=== PATIENT | female | born 1960 | race African-American/Black ===

== ENCOUNTER 2016-06-13 05:55 | Day surgery (SDC) | payer BC ==
[2016-06-12 14:19] LABS: BASOPHILS 0.2 % (0.0-2.0); EOSINOPHILS 2.7 % (0-7); HEMATOCRIT 47.6 % (36.0-48.0); HEMOGLOBIN 14.9 g/dL (12-16); IMMATURE GRANULOCYTES 0.3 % (0-5); LYMPHOCYTES 27.9 % (15-50); MCH 26.6 pg (26.0-34.0); MCHC 31.3 g/dL (31.0-37.0); MCV 84.8 fL (80.0-100.0); MEAN PLATELET VOLUME 11.4 fL (7.4-10.4); MONOCYTES 7.3 % (2-11); NEUTROPHILS 61.6 % (40-80); PLATELET COUNT 231 10x3/uL (130-400); RBC 5.61 10x6/uL (4.00-5.40); RDW 14.9 % (11.5-14.5); WBC 9.9 10x3/uL (4.8-10.8)
[2016-06-12 15:11] LABS: CALC OSMOLALITY 281 mosm/kg (275-300); CALCIUM 9.2 mg/dL (8.5-10.1); CARBON DIOXIDE 29.6 mmol/L (21.0-32.0); CHLORIDE - SERUM 105 mmol/L (98-107); CREATININE - SERUM 0.7 mg/dL (0.6-1.3); POTASSIUM - SERUM 3.9 mmol/L (3.5-5.1); SODIUM 142 mmol/L (136-145); UREA NITROGEN 12 mg/dL (7-18); eGFR NON AFRICAN AMERICAN > 90 mL/min (90-120)
[2016-06-12 15:19] LABS: GLUCOSE 82 mg/dL (74-106)
[~2016-06-13] VITALS: Ht 165.1 cm; Wt 129.3 kg
[~2016-06-13 05:55] MED LIST: CYCLOBENZAPRINE10 MG PO; GLUCOPHAGE1000 MG PO; JARDIANCE10 MG PO; LEVOTHYROXINE50 MCG PO; MOBIC7.5 MG PO; TOPROL XL50 MG PO; ULTRAM50 MG PO; VICTOZA0.6 MG/0.1 SQ; ZESTRIL40 MG PO; ZOFRAN ODT4 MG/UDTAB PO
[2016-06-13 08:27] VITALS: BP 187/85; Ht 165.1 cm; Wt 129.3 kg
--- NOTE | 2016-06-13 09:47 | HP ---
PATIENT: JOSEPH ROMEO MEDICAL RECORD: [id number] ACCOUNT: [id number] LOCATION:[facility] : 58 ADMISSION DATE: 06/13/16 HISTORY AND PHYSICAL EXAMINATION HISTORY OF PRESENT ILLNESS: This patient is a 55-year-old black female with postmenopausal bleeding, scheduled for hysteroscopy, endometrial biopsies, and endometrial curettage for a thorough evaluation. She has undergone an endometrial biopsy in the office with scant tissue obtained. Complex hyperplasia was seen. There was no atypia and she is scheduled for a thorough evaluation of the endometrium using hysteroscopy, endometrial biopsies under visualization and a thorough endometrial curettage. ALLERGIES: PENICILLIN. CURRENT MEDICATIONS: Victoza, Januvia, metformin, levothyroxine, metoprolol, lisinopril, simvastatin, meloxicam. MEDICAL PROBLEMS: Include hypertension and diabetes. PREVIOUS SURGERIES: Breast reduction in 2005 and a history of a tonsillectomy in the past. FAMILY HISTORY: Noncontributory. REVIEW OF SYSTEMS: No chest pain and no dyspnea. HABITS: Nonsmoker. No ethanol use. PHYSICAL EXAMINATION: GENERAL: Well-developed and well-nourished, obese Black female in no distress. HEENT: Grossly unremarkable. LUNGS: Clear. HEART: Regular rate and rhythm. BREAST: Current. PELVIC: Current. EXTREMITIES: No cyanosis, clubbing or edema. NEUROLOGIC: Grossly intact. DIAGNOSTIC DATA: Pelvic ultrasound reveals a 7 cm anteverted uterus. Endometrium is 1.21 cm in thickness. LABORATORY DATA: The patient has a complex cyst on the right ovary and the left ovary is within normal limits. IMPRESSION: 1. Postmenopausal bleeding. 2. Endometrial biopsy scant without hyperplasia. PLAN: Endometrial biopsy with hysteroscopy, endometrial curettage, all indicated procedures in a.m. The patient understands that this is the beginning of evaluation of the pelvic structures and she will probably need further surgery for the ovarian mass. TRANSINT:[id number] Voice Confirmation ID: [id number] DOCUMENT ID: [id number] HISTORY AND PHYSICAL [id number] JOSEPH ROMEOVENITA GREEN MD at 0947 CC: [id number] DICTATION DATE: 06/12/16 1305 AUTO MACHINIST: 06/12/16 1340 [facility] [address] [place] [address]
--- NOTE | 2016-06-13 13:08 | NUR ---
BASILIA-PAD APPLIED IN RR
--- NOTE | 2016-06-13 14:55 | NUR ---
DISCHARGE INSTRUCTIONS AND RX GIVEN FOR PERCOCET, VOICED UNDERSTANDING. DISCHARGED HOME VIA WC.
--- NOTE | 2016-06-19 17:03 | OP ---
PATIENT NAME: JOSEPH ROMEO MEDICAL RECORD: [id number] :58 LOCATION:[facility] ADMISSION DATE: SURGEON: DEBORAH WHITING MD DATE OF OPERATION: 06/13/2016 PREOPERATIVE DIAGNOSES: 1. Postmenopausal bleeding. 2. Endometrial biopsy, results of endometrial complex hyperplasia. POSTOPERATIVE DIAGNOSES: 1. Postmenopausal bleeding. 2. Endometrial biopsy, results of endometrial complex hyperplasia. PROCEDURE: Cervical dilatation, endocervical curettage, hysteroscopy, endometrial biopsy, and endometrial curettage. SURGEON: Deborah Whiting MD ANESTHESIA: General. FINDINGS: An 8-cm endometrial cavity depth. Endometrium with a vascular, irregular appearance. ESTIMATED BLOOD LOSS: Minimal. COMPLICATIONS OF PROCEDURE: None. OPERATIVE NOTE: The patient was taken to the OR and under adequate general anesthesia, prepped and draped in the usual manner for vaginal procedures with legs in floating boot He stirrups. The anterior lip of cervix was grasped with tenaculum. Endocervical curettage was performed. The endometrial cavity sounded to 8 cm in depth. The cervix was progressively dilated to accept the hysteroscope and hysteroscopic evaluation revealed the above listed findings an irregular vascular-appearing endometrium. One area consistent with polyp was sent separately. Endometrial biopsies were taken randomly of most prominent areas. A thorough endometrial curettage was then performed after removal of the hysteroscope and sent as a separate specimen. At the end of procedure, bleeding was minimal. The patient went to recovery area in good condition. TRANSINT:[id number] Voice Confirmation ID: [id number] DOCUMENT ID: [id number] DEBORAH WHITING MD at 1703 CC: [id number] DICTATION DATE: 06/13/16 1213 RECAPPER: 06/13/169 [facility] 06/13/16 [place] [address]
[2016-08-13] MEDS ORDERED: ADVIL200 MG PO (11:48)
== END 2016-06-13 14:55 | disposition home or self-care (01) ==
LOC: D.OPS 05:55 → D.PAN 09:30 → D.OPS 09:30
PROVIDERS: Anesthesiology; Obstetrics & Gynecology
DX: N95.0 Postmenopausal bleeding (principal); N85.01 Benign endometrial hyperplasia; N84.0 Polyp of corpus uteri; Z79.1 Long term (current) use of non-steroidal anti-inflammatories (NSAID); Z79.899 Other long term (current) drug therapy; I10 Essential (primary) hypertension; E11.9 Type 2 diabetes mellitus without complications

== ENCOUNTER 2016-08-15 05:19 | Inpatient (IN) | payer BC ==
[2016-08-13 12:37] LABS: BASOPHILS 0.1 % (0.0-2.0); HEMATOCRIT 42.1 % (36.0-48.0); HEMOGLOBIN 13.3 g/dL (12-16); IMMATURE GRANULOCYTES 0.4 % (0-5); LYMPHOCYTES 23.1 % (15-50); MCH 26.8 pg (26.0-34.0); MCHC 31.6 g/dL (31.0-37.0); MCV 84.9 fL (80.0-100.0); MEAN PLATELET VOLUME 11.1 fL (7.4-10.4); MONOCYTES 7.4 % (2-11); PLATELET COUNT 255 10x3/uL (130-400); RBC 4.96 10x6/uL (4.00-5.40); WBC 12.1 10x3/uL (4.8-10.8)
[2016-08-13 12:53] LABS: CALC OSMOLALITY 285 mosm/kg (275-300); CALCIUM 8.8 mg/dL (8.5-10.1); CHLORIDE - SERUM 108 mmol/L (98-107); CREATININE - SERUM 0.7 mg/dL (0.6-1.3); GLUCOSE 93 mg/dL (74-106); SODIUM 143 mmol/L (136-145); UREA NITROGEN 16 mg/dL (7-18); eGFR NON AFRICAN AMERICAN > 90 mL/min (90-120)
[~2016-08-15] VITALS: Ht 165.1 cm; Wt 129.5 kg
[2016-08-15] VITALS (13 sets, daily range): BP systolic 111–164; BP diastolic 68–97; Ht 165.1 cm; Wt 129.5 kg
[~2016-08-15 05:19] MED LIST changes: +ADVIL200 MG PO
[2016-08-15 06:29] LABS: HCG URINE NEGATIVE (NEGATIVE)
--- NOTE | 2016-08-15 07:22 | HP ---
PATIENT: JOSEPH KOTHARI MEDICAL RECORD: [id number] ACCOUNT: [id number] LOCATION[place] [place] 58 ADMISSION DATE: 08/15/16 HISTORY AND PHYSICAL EXAMINATION HISTORY OF PRESENT ILLNESS: This patient is a 56-year-old female, who desires hysterectomy and bilateral salpingo-oophorectomy for continued bleeding problems. 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 She has undergone hysteroscopy and endometrial curettage with benign findings. MEDICAL HISTORY: ALLERGIES: PENICILLIN. CURRENT MEDICATIONS: Victoza, Januvia, metformin, levothyroxine, metoprolol, lisinopril, simvastatin, meloxicam and [place]. MEDICAL PROBLEMS: Include diabetes and hypertension. PREVIOUS SURGERIES: Include hysteroscopy as discussed above with sampling of the endometrium and curettage, and breast reduction surgery in 2005. She also had a tonsillectomy in 1967. FAMILY HISTORY: Positive for breast and ovarian cancer, diabetes, depression, heart disease, hypertension. REVIEW OF SYSTEMS: No chest pain, no dyspnea. Positive for bothersome vaginal bleeding even after recent procedure of endometrial curettage. SOCIAL HISTORY: The patient is . She is a former smoker. No ethanol use. PHYSICAL EXAMINATION: GENERAL: Well-developed, well-nourished black female, in no distress. HEENT: Grossly unremarkable. LUNGS: Clear. HEART: Regular rate and rhythm. There are no breast masses. ABDOMEN: Soft and nontender. PELVIC: Examination is current and deferred for anesthesia. EXTREMITIES: No cyanosis, clubbing or edema. NEUROLOGIC: Grossly intact. IMPRESSION: Vaginal bleeding, which continues even after endometrial curettage and an abnormal-appearing multicystic ovary per ultrasound. PLAN: The patient desires a vaginal procedure if possible. Discussed laparoscopy for evaluation for laparoscopic vaginal hysterectomy to be followed by bilateral salpingo-oophorectomy with the hysterectomy. She understands that it may not be possible to perform this procedure without a larger abdominal incision, so she agreed to a total abdominal hysterectomy, bilateral salpingo-oophorectomy if indicated. I have discussed risks of surgery including anesthesia, infection, bleeding, injury to other organs, need for a second operation to repair. All questions answered. TRANSINT:[id number] Voice Confirmation ID: [id number] DOCUMENT ID: [id number] HISTORY AND PHYSICAL [id number] JOSEPH KOTHARI BRENDA MD at 0722 CC: [id number] DICTATION DATE: 08/14/16 1308 LABOR CONCILIATOR: 08/14/16 1354 ADM IN [facility] [address] [id number]
--- NOTE | 2016-08-15 08:22 | NUR ---
0820 CONVERT TO AN OPEN MIRA
--- NOTE | 2016-08-15 11:39 | NUR ---
PT WAS RECEIVED FROM RECOVERY ROOM. PT IS ASLEEP BUT EASILY AWAKENS. PT IS ON 4 LITERS OF O2. O2 SAT 91 %. LUNGS- CLEAR. HEART- RRR. ABD SOFT WITH TENDERNESS, OBESE. BIKINI LINE INCISION WITH BULKY DRESSING NOTED. CLEAN DRY AND INTACT. ICE PACK PLACED OVER INCISION. LE- SCD'S INTACT AND INITIATED. GUSMAN INTACT WITH 400 CC GREENISH BLUE URINE. IV PATENT R HAND WITH NS @ 125 CC/HR. DEMEROL INDUSTRIAL HYGIENE TECHNICIAN INITIATED. 10 MG Q 10 MIN WITH 200 MG LOCKOUT. BED IS LOW, SIDE RAILS UP X 2 AND CALL LIGHT IN REACH. INSTRUCTED PT AND HER ON INDUSTRIAL HYGIENE TECHNICIAN, GUSMAN, SCD'S, ICE PACK, TURN, COUGH AND DEEP BREATHING. AND INC SPIROMETRY.
--- NOTE | 2016-08-15 13:00 | NUR ---
PT HAS HAD 200 CC URINE OUTPUT SINCE I RECEIVED HER. URINE IS GREENISH BLUE.
--- NOTE | 2016-08-15 13:27 | NUR ---
PT IS RESTING. AT BEDSIDE. SHE STATES HER PAIN IS GETTING BETTER. SHE IS GETTING WARM NOW. SHE IS TAKING SIPS OF WATER
--- NOTE | 2016-08-15 14:00 | NUR ---
PT STATES PAIN IS A 7. SHE HAS BEEN ON AND OFF SLEEPING. AT BEDSIDE. IV PATENT R HAND. GUSMAN INTACT. SCD'S INTACT. BED IS LOW SIDE RAILS UP X 2 AND CALL LIGHT IN REACH.
--- NOTE | 2016-08-15 15:10 | NUR ---
PT IS SLEEPING. AT BEDSIDE. OS SAT STABLE.
--- NOTE | 2016-08-15 16:06 | NUR ---
O2 D'CD. PT'S O2 SATS HAVE BEEN 93-98. PT IS DOING WELL. NO SOB.
--- NOTE | 2016-08-15 16:11 | NUR ---
PT ASKED FOR CHICKEN BROTH. MADE FOR HER. DRESSING IS CLEAN DRY AND INTACT. IV PATENT R HAND. GUSMAN INTACT. SCD'S INTACT. BED IS LOW, SIDE RAILS UP X 2 AND CALL LIGHT IN REACH. AT BEDSIDE.
--- NOTE | 2016-08-15 18:21 | NUR ---
PT IS AWAKE LYING N BED. HAS TOLERATED CLEAR LIQUIDS. GUSMAN CATH INTACT. IV PATENT R HAND WITH LR AT 125 AND DEMEROL SLURRY PLANT OPERATOR 10 MG Q 10 WITH 200 MG LOCKOUT. SCD'S INTACT. INCISION COVERED WITH BULKY DRESSING. CLEAN ,DRY AND INTACT.
--- NOTE | 2016-08-15 19:10 | NUR ---
ASSESSMENT PER FLOW SHEET, VS OBTAINED, IV IN RIGHT HAND INTACT WITH NO REDNESS OR EDEMA INFUSING VIA PUMP LR AT 125 ML/HR, DEMEROL BILL SORTER TO DELIVER 10MG/10MINS PER PT'S DEMAND FOR PAIN CONTROL, PT RATES INC PAIN 03/19, PT INST TO PUSH BUTTON AT THIS TIME, BIKINI INC WITH LARGE DRESSING CDI WITH NO DRAINAGE NOTED, FRESH ICE PACK TO ABD, BLUE CHUX AND PINK PAD CHANGED TO BEING WADDED UP UNDERNEATH PT, SCANT VAG BLEEDING NOTED, GUSMAN CATH INTACT DRAINING METHYLINE BLUE URINE, PT ENC TO DRINK PLENTY OF FLUIDS, PT DENIES FLATUS, SCD'S ON AND WORKING PROPERLY, PT REPOSITIONED FROM RIGHT SIDE TO BACK AT THIS TIME, PT DENIES FURTHER NEEDS
--- NOTE | 2016-08-15 20:07 | NUR ---
NEW BAG OF LR HUNG AND DEMEROL TO SURGICAL TECHNOLOGY INSTRUCTOR, SEE EMAR, PT TALKING ON PHONE AT THIS TIME, REQUESTED AND SERVED DOMINIC ABARCA DENIES FURTHER NEEDS, DINNER TRAY REMOVED
--- NOTE | 2016-08-15 21:10 | NUR ---
PT TALKING ON PHONE, ADM PEPCID PO AND TORADOL SIVP PER MD ORDERS, SEE EMAR, PT DENIES FURTHER NEEDS AT THIS TIME
--- NOTE | 2016-08-15 22:14 | NUR ---
PT RESTING WITH EYES CLOSED, RESP QUIET, NO DISTRESS NOTED, LEFT UNDISTURBED AT THIS TIME
[2016-08-16 00:15] VITALS: BP 135/79
--- NOTE | 2016-08-16 00:15 | NUR ---
PT RESTING WITH EYES CLOSED, AROUSES TO SOFT VERBAL STIMULATION, VS OBTAINED, GUSMAN CATH EMPTIED, PT ENC TO DRINK MORE FLUIDS, PT REQUESTED AND SERVED BOTTLED WATER, PT RATES INC PAIN 12/17, DENIES FURTHER NEEDS AT THIS TIME
--- NOTE | 2016-08-16 02:23 | NUR ---
PT RESTING WITH EYES CLOSED, RESP QUIET, NO DISTRESS NOTED, LEFT UNDISTURBED AT THIS TIME
[2016-08-16 03:49] VITALS: BP 149/77
--- NOTE | 2016-08-16 03:49 | NUR ---
PT AWAKE, NEW BAG OF LR HUNG IV INFUSING VIA PUMP AT 125 ML/HR, I&O'S COLLECTED, VS OBTAINED, FRESH ICE PACK TO ABD, PT ENC TO DRINK PLENTY OF FLUIDS, PT STATES "I KNOW, I JUST FELL ASLEEP, I AM AWAKE NOW, SO I WILL DRINK THIS WATER", PT DENIES FURTHER NEEDS
--- NOTE | 2016-08-16 04:30 | NUR ---
LAB TO ROOM FOR AM BLOOD DRAW
[2016-08-16 05:02] LABS: CALC OSMOLALITY 277 mosm/kg (275-300); CALCIUM 7.8 mg/dL (8.5-10.1); CARBON DIOXIDE 24.3 mmol/L (21.0-32.0); CHLORIDE - SERUM 107 mmol/L (98-107); CREATININE - SERUM 0.8 mg/dL (0.6-1.3); GLUCOSE 127 mg/dL (74-106); POTASSIUM - SERUM 3.6 mmol/L (3.5-5.1); SODIUM 139 mmol/L (136-145); UREA NITROGEN 8 mg/dL (7-18); eGFR NON AFRICAN AMERICAN 78 mL/min (90-120)
[2016-08-16 05:18] LABS: HEMATOCRIT 37.6 % (36.0-48.0); HEMOGLOBIN 11.8 g/dL (12-16); MCH 26.8 pg (26.0-34.0); MCHC 31.4 g/dL (31.0-37.0); MCV 85.3 fL (80.0-100.0); MEAN PLATELET VOLUME 11.5 fL (7.4-10.4); RBC 4.41 10x6/uL (4.00-5.40); WBC 15.4 10x3/uL (4.8-10.8)
--- NOTE | 2016-08-16 05:40 | NUR ---
PT AWAKE, RATES INC PAIN 12/17, ADM TORADOL SIVP PER MD ORDERS, SEE EMAR, PT DENIES FURTHER NEEDS
--- NOTE | 2016-08-16 06:27 | NUR ---
PT AWAKE, REPORTS PAIN IS BETTER, RATES 5/10, DENIES NEEDS AT THIS TIME
--- NOTE | 2016-08-16 07:00 | NUR ---
SHIFT REPORT TO DAY SHIFT
--- NOTE | 2016-08-16 07:30 | NUR ---
PATIENT IS AWAKE AND ALERT. C/O "I CAN'T GET MY BOTTOM UP OFF THE BED." ATTEMPTED TO REPOSITION HER. SHE STATES THAT SHE IS NOW COMFORTABLE. LUNGS DIMINISHED IN THE BASED. BS ACTIVE. CARDIAC RRR, SET UP HER CL MEAL TRAY. VSS. DISCUSSED POC FOR TODAY. SHE VOICES APREHENSION AND UNDERSTANDING.
--- NOTE | 2016-08-16 07:40 | OP ---
PATIENT NAME: JOSEPH KOTHARI MEDICAL RECORD: [id number] :58 LOCATION:[facility] D.1214 ADMISSION DATE:08/15/16 SURGEON: DEBORAH WHITING MD DATE OF OPERATION: 08/15/2016 PREOPERATIVE DIAGNOSES: Postmenopausal bleeding and adnexal mass. POSTOPERATIVE DIAGNOSES: Postmenopausal bleeding, adnexal mass and peritoneal excrescences. PROCEDURES: Laparoscopy, total abdominal hysterectomy, bilateral salpingo-oophorectomy, removal of peritoneal masses and pelvic washings. SURGEON: Deborah Whiting MD ANESTHESIA: General. FINDINGS: Normal-appearing uterus. The right ovarian cyst and peritoneal masses that are consistent in appearance with possible phlebolith. ESTIMATED BLOOD LOSS: 200 cc. COMPLICATIONS OF SURGERY: None. OPERATIVE NOTE: The patient was taken to the OR and under adequate general anesthesia, was prepped and draped in the usual manner for abdominal and vaginal procedures with legs in floating boot He stirrups. The cervix was grasped with tenaculum. An intrauterine manipulator was placed and stabilized. Bladder was then catheterized. An elliptical incision was made at the umbilicus and extended under direct visualization through the subcutaneous tissue and fascia. The peritoneum elevated and incised and this incision extended to the limits of the skin incision allowing introduction of the laparoscopic trocar sleeve without difficulty. The laparoscope was then inserted and examination of the abdomen and pelvis revealed a cystic mass in the right adnexa with excrescences along the rectosigmoid and at the vaginal apex on the right. There were also some fine filmy adhesions in the pelvis. At this time, because of the undiagnosed nature of the pelvic mass and the excrescences that were seen, a decision was made for an open procedure. Laparoscopic instruments were all removed. A transverse incision was made in the lower abdomen and extended in a Pfannenstiel manner through subcutaneous tissue, fascia, dividing muscles in the midline in a Pfannenstiel manner. Peritoneum was elevated and incised and this incision extended from the symphysis pubis to within 7 cm to the umbilicus. O'Ari-O'Allen retractor was then used to pack bowel out of the operative field and findings were consistent with those visualized with the laparoscope. The round ligaments on the right and left were then ligated using Taryn clamps and #1 chromic suture. The uteroovarian ligament on the right was ligated using Taryn clamps and #1 chromic suture. Kochers were placed across the uteroovarian ligaments and fallopian tubes bilaterally. The right adnexa was then excised intact as a separate specimen. The infundibulopelvic ligament on the left was then ligated using Taryn clamps and #1 chromic suture. Uterine vessels were clamped and ligated using #1 chromic suture. The cervix was then dissected anteriorly with blunt and sharp dissection without difficulty away from the bladder. Cardinal ligaments were then progressively ligated with Taryn clamps and #1 chromic suture without difficulty. Vaginal angles were clamped with Chinedu clamps and specimen excised. This portion of the specimen OPERATIVE REPORT [id number] SANTANA JOSEPH BROWN included cervix, uterus, left tube and left ovary. The vaginal angles were made hemostatic using a U configuration #1 chromic suture. The vaginal apex was closed with interrupted [id number], #1 chromic sutures. The pelvis was copiously irrigated and suctioned and 2 remaining excrescences were excised and sent as a separate specimen, one of the excrescences was different in texture and was located at the right vaginal apex. The pelvis was copiously irrigated, suctioned and hemostasis was confirmed. Khushbu was applied. All instruments and laps were removed. Sponge and needle counts were correct. The fascial layer was closed in a running noninterlocking #1 PDS loop suture. Skin incision in the lower abdomen was reapproximated in 2 layers using a running noninterlocking 2-0 plain gut suture and a subcuticular 2-0 plain gut suture. The fascial layer at the umbilicus was closed with a single interrupted #1 Vicryl suture. Skin incisions were closed using Dermabond including the left lower quadrant incision from the laparoscopic portion of the procedure. Steri-Strip dressings were applied. A pressure dressing was applied to the lower abdomen and the patient went to recovery area in good condition. TRANSINT:[id number] Voice Confirmation ID: [id number] DOCUMENT ID: [id number] DEBORAH WHITING MD at 0740 CC: [id number] DICTATION DATE: 08/15/16 1035 SALES CLERK: 08/15/16 2017 ADM IN [facility] [address] [place] [address]
[2016-08-16 08:00] VITALS: BP 116/78
--- NOTE | 2016-08-16 09:20 | NUR ---
PATIENT MEDICATED ORALLY FOR PAIN. SHE CURRENLTY RATES HER PAIN A 6 IN HER ABDOMEN INCISION THAN "GOES THROUGH TO MY BACK". NO VAGINAL BLEEDING NOTED. ICE PROVIDED FOR SPRING WATER THAT SOME FAMILY DELIVERED. SHE NOW HAS 3 CUPS OF WATER AT THE BEDSIDE. SHE VOICES UNDERSTANDING THAT SHE NEEDS TO INCREASE ORAL FLUID INTAKE. IVF SL. LIGHT GREEN URINE TO THE BEDSIDE COLLECTION BAG.
--- NOTE | 2016-08-16 09:40 | NUR ---
REMOVED GUSMAN CATHETER, FULLY INTACT, AFTER BALLOON DEFLATED. INSTRUCTED PATIENT TO CALL ASSISTANCE WHEN SHE FELT THE URGE TO URINATED. SHE VOICED UNDERSTANDING. POSITIONED FOR COMFORT. SCD'S ON AND PUMPING. DENIED NEEDS.
--- NOTE | 2016-08-16 10:55 | NUR ---
LOVENOX RECEIVED FROM PHARMACY- GIVEN SUB CU RLQ OF ABDOMEN.
--- NOTE | 2016-08-16 14:10 | NUR ---
ASSISTED PATIENT UP TO THE RESTROOM WITH THE ASSISTANCE OF A PHYSICAL THERAPIST. SHE REQUIRED VERY LITTLE SUPPORT AND WAS ABLE TO WALK BACK TO THE BED WITH STAND BY ASSIST OF MYSELF ONLY. SHE WAS ABLE TO URINATE. ENCOURAGED HER TO INCREASE HER FLUID INTAKE. SHE C/O NAUSEA. ZOFRAN GIVEN IV. SCD'S REPLACED. AND FEMALE VISITOR AT THE BEDSIDE.
[2016-08-16 16:15] VITALS: BP 150/79
--- NOTE | 2016-08-16 16:38 | NUR ---
PATIENT RESTING IN HER BED. APPEARS VERY UNCOMFORTABLE BUT STATES THAT SHE IS. VSS. PULSE OX 90%. ENCOURAGED HER WITH THE INCENTIVE SPIROMETER. SHE IS ABLE TO PULL UP TO 1500. MARKED THE SPOT AND TOLD HER THAT IS HER GOAL RACHELL 10 TIMES PER HOUR. WARNED HER OF THE RISK SHE IS AT FOR LUNG INFECTIONS DUE TO LIMITED AMBULATION AND REMAINING IN BED MUCH OF THE DAY. SHE VERBALIZED UNDERSTANDING. SPOUSE AT THE BEDSIDE AND VERBALIZED THAT HE WILL ENCOURAGE HER WELL.
--- NOTE | 2016-08-16 18:40 | NUR ---
PATIENT BACK TO BED AFTER SHOWER. POSITIONED FOR COMFORT. PHOTOED HER INCISION AT HER REQUEST. SHE WANTED TO SEE WHAT IS LOOKED LIKE. THERE ARE 6 1CM SKIN TEARS ON THE RIGHT LOWER QUADRANT OF HER ABDOMEN. TOWEL LAID WITHIN THE FOLD. SHE DECLINES PUTTING PANTIES ON AT THIS TIME. WISHES TO REST.
[2016-08-16 19:40] VITALS: BP 130/76
--- NOTE | 2016-08-16 19:40 | NUR ---
ASSESSMENT PER FLOW SHEET, VS OBTAINED, SALINE LOCK IN RIGHT HAND INTACT WITH NO REDNESS OR EDEMA, [employer] INC WITH STERI STRIPS CDI WITH NO DRAINAGE NOTED, APPRX 6 SKIN TEARS NOTED TO RIGHT SIDE OF ABD, BASILIA PAD PLACED OVER FOR COMFORT AND MOISTURE CONTROL, PT DENIES FLATUS OR BM, PT UP TO BR WITH ASSISTANCE, VOIDED 200 MLS OF VERY LIGHT GREEN TINGED URINE BY SELF WITH NO DIFFICULTY, PT BACK TO BED, SCD'S APPLIED AND WORKING PROPERLY, PT REPORTS "SLIGHT NAUSEA", INFORMED PT THAT I WILL ADM DANI
--- NOTE | 2016-08-16 19:55 | NUR ---
SALINE LOCK FLUSHED, ADM DILUTED ZOFRAN SIVP PER MD ORDERS, SEE EMAR, SALINE LOCK FLUSHED
--- NOTE | 2016-08-16 20:30 | NUR ---
PT HEAD RIGGER LIGHT, PT UP TO BR, GAIT STEADY, VOIDED 400 MLS OF VERY LIGHT GREEN TINGED URINE BY SELF WITH NO DIFFICULTY, PT BACK TO BED, SCDS REAPPLIED AND WORKING PROPERLY, PT DENIES FURTHER NEEDS AT THIS TIME
--- NOTE | 2016-08-16 21:30 | NUR ---
PT RESTING WITH EYES CLOSED, AROUSES TO SOFT VERBAL STIMULATION, ADM 2100 MEDS AND PAIN MED PO PER MD ORDERS, SEE EMAR, PT UP TO BR, GAIT STEADY, VOIDED BY SELF WITH NO DIFFICULTY, PT BACK TO BED, SCD'S REAPPLIED AND WORKING PROPERLY, PT DENIES FURTHER NEEDS
--- NOTE | 2016-08-16 22:30 | NUR ---
PT RESTING WITH EYES CLOSED, RESP QUIET, NO DISTRESS NOTED, LEFT UNDISTURBED AT THIS TIME
[2016-08-17 00:33] VITALS: BP 140/72
--- NOTE | 2016-08-17 00:33 | NUR ---
PT RESTING WITH EYES CLOSED, AROUSES TO SOFT VERBAL STIMULATION, VS OBTAINED, ADM DEMEROL PO PER MD ORDERS, SEE EMAR, PT DENIES FURTHER NEEDS
--- NOTE | 2016-08-17 01:51 | NUR ---
PT MAJOR ASSEMBLER LIGHT, PT UP TO BR WITH ASSISTANCE, GAIT STEADY, VOIDED BY SELF WITH NO DIFFICULTY, PT C/O INC PAIN, PULLED PERCOCET FROM PYXIS, UPON ADM TO PT, PT REPORTS THAT OXYCODONE GIVES HER A REALLY "BAD TAYLOR", INFORMED PT THAT OXYCODONE WAS THE ONLY OTHER PAIN MED AVAILABLE, PT STATES "I'LL JUST WAIT FOR THE DEMEROL", INFORMED PT THAT I WILL ADM IT AROUND 3;30, SCD'S REAPPLIED AND WORKING PROPERLY, PT REQUESTED AND SERVED USMAN RESTREPO, DENIES FURTHER NEEDS
--- NOTE | 2016-08-17 02:44 | NUR ---
PT RESTING WITH EYES CLOSED, RESP QUIET, NO DISTRESS NOTED, LEFT UNDISTURBED AT THIS TIME
[2016-08-17 03:49] VITALS: BP 144/84
--- NOTE | 2016-08-17 03:49 | NUR ---
PT AWAKE, VS OBTAINED, PT REPORTS GETTING UP TO BR BY SELF WITH NO DIFFICULTY, SCD'S PLACED BACK ON AND WORKING PROPERLY, ADM DEMEROL PO PER MD ORDERS, SEE EMAR, PT REPOSITIONED SELF IN BED, PT INST TO AND USES I.S., AIR ADJ IN ROOM PER REQUEST, PT DENIES FURTHER NEEDS AT THIS TIME
--- NOTE | 2016-08-17 05:00 | NUR ---
PT ENVIRONMENTAL LEAD LIGHT, PT COMING OUT OF BR, NEEDED ASSISTANCE GETTING BACK INTO BED DUE TO END OF BED BEING SLIGHTLY ELEVATED, FOOT OF BED LOWERED, PT BACK TO BED, SCD'S REAPPLIED AND WORKING PROPERLY, DENIES FURTHER NEEDS AT THIS TIME
--- NOTE | 2016-08-17 07:00 | NUR ---
SHIFT REPORT TO DAY SHIFT
--- NOTE | 2016-08-17 08:10 | NUR ---
PATIENT IS AWAKE AND ALERT. SHE DOESN'T HAVE AN APPETITE FOR THE BREAKFAST THAT WAS DELIVERED AND REQUESTES ALTERNATIVE. KITCHEN NOTIFIED. VSS. CALL LIGHT IS WITHIN HER REACH. SHE HAS BEEN UP TO THE RESTROOM UNASSISTED AT TIMES THROUGHOUT THE NIGHT.
[2016-08-17 09:00] VITALS: BP 133/68
--- NOTE | 2016-08-17 09:40 | NUR ---
[place] NOW RATES HER PAIN A 5. SHE IS SITTING UP IN THE BEDSIDE CHAIR. DENIES NEEDS AT THIS TIME. SHE DID REQUEST SOME STAND BY ASSIST TO GET UP AFTER MEDICATIONS GIVEN EARLIER DUE TO INCREASED DISCOMFORT.
--- NOTE | 2016-08-17 12:40 | NUR ---
PATIENT INTO SHOWER AFTER HAVING ACCIDENT WITH BM. SHE STATES HAT SHE DIDN'T REALIZE THAT SHE NEEDED TO HAVE BM AND WAS UNABLE TO STOP IT. LINENS CHANGED. ASSISTANCE GIVEN ACCEPTED. SPOUSE HELPED MOSTLY, PER HER REQUEST.
--- NOTE | 2016-08-17 13:20 | NUR ---
PATIENT GIVEN DEMEROL PO FOR PAIN THAT SHE IS RATING A 6. FRESH ICE SUPPLIED. DENIES OTHER NEEDS.
--- NOTE | 2016-08-17 14:40 | NUR ---
PATIENT NOW RATING HER PAIN A 2. SHE IS RESTING IN HER BED, HOB UP 45 DEGREEES.
--- NOTE | 2016-08-17 15:42 | NUR ---
PATIENT RESTING QUIETLY WATCHING TV WITH SPOUSE AT THE BEDSIDE. SHE DENIES NEEDS. WAITING TO GO HOME THIS EVENING AFTER SUPPER.
[2016-08-17] MEDS ORDERED: PERCOCET 5-3251 TAB PO (16:21)
[2016-08-17] MEDS ORDERED: LOVENOX40 MG/0.4 SC (16:21)
[2016-08-17] MEDS ORDERED: IBUPROFEN600 MG PO (16:22)
--- NOTE | 2016-08-17 18:30 | NUR ---
DISCUSSED FRANNY'S DISCHARGE INSTRUCTIONS, INCLUDING INCISION CARE, MEDICATIONS, S/S OF INFECTION, AND ACTIVITY LIMITATIONS. SHE VERBALIZES UNDERSTANDING. IS ACCUSTOMED TO GIVING SELF SHOTS. INSTRUCTED TO INSERT THE AIR WITHIN THE VIAL WELL LIQUID. PRESCRIPTIONS GIVEN. WHEELED OUT TO SPOUSE'S WAITING CAR.
--- NOTE | 2016-08-17 18:30 | NUR ---
DISCUSSED PATIENT'S DISCHARGE INSTRUCTIONS. INCLUDED INCISION CARE, MEDICATIONS, S/S OF INFECTION AND ACTIVITY LIMITATIONS. SHE VERBALIZES UNDERSTANDING. IS ACCUSTOMED TO GIVING SELF SHOTS. INSTRUCTED HER IN INSERT THE AIR WELL THE LIQUID WITH INJECTIONS. SHE VOICED UNDERSTANDING. PRESCRIPTIONS GIVEN. WHEELED OUT TO SPOUSES WAITING CAR.
--- NOTE | 2016-08-18 18:10 | NUR ---
PATIENT CALLED THIS PM SAYING SHE DID NOT RECEIVED INSTRUCTIONS ABOUT HER HYSTERECTOMY. SAYS SHE WANTED THE COPY WITH THE PICTURES ON IT. INSTRUCTED PATIENT THAT I WOULD REPRINT HER DC INSTRUCTIONS FOR HER AND THAT SOMEONE CAN BURR FILER ON L&D AT THE DESK. VERBALIZED UNDERSTANDING AND SAYS SOMEONE WILL PICK THE INSTRUCTION SHEETS UP ON SATURDAY.
== END 2016-08-17 18:40 | disposition home or self-care (01) | DRG 743 ==
LOC: D.SDCHOLD 05:19 → D.WS 11:06
PROVIDERS: ADMIT Obstetrics & Gynecology
PROC: 0UT24ZZ Resection of Bilateral Ovaries, Percutaneous Endoscopic Approach (ICD-10-PCS; 2016-08-15)
PROC: 0UT94ZZ Resection of Uterus, Percutaneous Endoscopic Approach (ICD-10-PCS; principal; 2016-08-15 07:30)
PROC: 0UTC4ZZ Resection of Cervix, Percutaneous Endoscopic Approach (ICD-10-PCS; 2016-08-15 07:30)
PROC: 0UT74ZZ Resection of Bilateral Fallopian Tubes, Percutaneous Endoscopic Approach (ICD-10-PCS; 2016-08-15 07:30)
DX: N95.0 Postmenopausal bleeding (principal); I87.8 Other specified disorders of veins; K66.9 Disorder of peritoneum, unspecified; N83.201 Unspecified ovarian cyst, right side; E11.9 Type 2 diabetes mellitus without complications; I10 Essential (primary) hypertension

== ENCOUNTER 2016-08-19 07:08 | Emergency (ER) | payer BC ==
[2016-08-15 13:31] VITALS: BMI 47.5
[~2016-08-19 07:08] MED LIST changes: +IBUPROFEN600 MG PO; +LOVENOX40 MG/0.4 SC; +PERCOCET 5-3251 TAB PO
[2016-08-19 07:51] LABS: BASOPHILS 0.1 % (0.0-2.0); EOSINOPHILS 2.8 % (0-7); HEMATOCRIT 39.2 % (36.0-48.0); HEMOGLOBIN 12.4 g/dL (12-16); IMMATURE GRANULOCYTES 0.4 % (0-5); LYMPHOCYTES 13.3 % (15-50); MCH 26.8 pg (26.0-34.0); MCHC 31.6 g/dL (31.0-37.0); MCV 84.7 fL (80.0-100.0); MONOCYTES 7.4 % (2-11); PLATELET COUNT 238 10x3/uL (130-400); RBC 4.63 10x6/uL (4.00-5.40); RDW 14.9 % (11.5-14.5); WBC 11.6 10x3/uL (4.8-10.8)
[2016-08-19 08:04] LABS: ALBUMIN 2.8 g/dL (3.4-5.0); ALKALINE PHOSPHATASE 78 U/L (46-116); ALT (SGPT) 28 U/L (10-68); BILIRUBIN - TOTAL 0.37 mg/dL (0.2-1.3); CALC OSMOLALITY 286 mosm/kg (275-300); CALCIUM 8.9 mg/dL (8.5-10.1); CARBON DIOXIDE 23.6 mmol/L (21.0-32.0); CHLORIDE - SERUM 109 mmol/L (98-107); CREATININE - SERUM 0.7 mg/dL (0.6-1.3); GLUCOSE 157 mg/dL (74-106); POTASSIUM - SERUM 3.1 mmol/L (3.5-5.1); PROTEIN - SERUM 6.8 g/dL (6.4-8.2); SODIUM 144 mmol/L (136-145); UREA NITROGEN 5 mg/dL (7-18); eGFR NON AFRICAN AMERICAN > 90 mL/min (90-120)
[2016-08-19 08:26] LABS: AMYLASE - SERUM 29 U/L (25-115); LIPASE 91 U/L (73-393); PRO BNP 312 pg/mL (0-125)
[2016-08-19 08:35] LABS: TROPONIN-I < 0.017 ng/mL (0.000-0.060)
[2016-08-19 09:10] LABS: APPEARANCE HAZY (CLEAR); BILIRUBIN NEGATIVE (NEGATIVE); COLOR GREEN (YELLOW); GLUCOSE 1000 mg/dL (NEGATIVE); KETONE MODERATE mg/dL (NEGATIVE); LEUKOCYTE ESTERASE NEGATIVE (NEGATIVE); NITRITE NEGATIVE (NEGATIVE); PROTEIN NEGATIVE (NEGATIVE); SPECIFIC GRAVITY 1.015 (1.005-1.020); UROBILINOGEN NORMAL (NORMAL)
[2016-08-19 09:12] LABS: RED CELLS - URINE 0-5 /hpf (0-5); WHITE CELLS - URINE 0-5 /hpf (0-5)
[2016-08-19 09:13] LABS: BACTERIA FEW /hpf (NONE SEEN); EPITHELIAL CELLS 0-5 /hpf (0-5); YEAST >1+ WITH HYPHAE /hpf (NONE SEEN)
[2016-08-20] MEDS ORDERED: GLUCOPHAGE1000 MG PO (01:43)
[2016-08-20] MEDS ORDERED: JARDIANCE10 MG PO (01:44)
[2016-08-20] MEDS ORDERED: MOBIC7.5 MG PO (01:45)
[2016-08-20] MEDS ORDERED: LEVOXYL50 MCG PO (01:45)
[2016-08-20] MEDS ORDERED: TOPROL XL50 MG PO (01:46)
[2016-08-20] MEDS ORDERED: ZESTRIL40 MG (01:47)
== END 2016-08-19 09:33 | disposition home or self-care (01) ==
LOC: D.ER 07:08
PROVIDERS: Family Medicine
DX: R10.9 Unspecified abdominal pain (principal); R11.10 Vomiting, unspecified; I10 Essential (primary) hypertension; E78.00 Pure hypercholesterolemia, unspecified

== ENCOUNTER 2016-08-19 16:07 | Inpatient (IN) | payer BC ==
[~2016-08-19] VITALS: Ht 165.1 cm; Wt 127.0 kg
[2016-08-20] VITALS (10 sets, daily range): BP systolic 153–183; BP diastolic 89–106; Ht 165.1 cm; Wt 127.0 kg
--- NOTE | 2016-08-20 01:22 | NUR ---
RECEIVED VIA CART FROM ER. NG TUBE NOTED FROM NARE. PT. WITH GREAT DIFFICULTY MOVING FROM CART TO BED. PT. REQUESTING THAT SHE NOT BE RUSHED NOR HELPED. ULTIMATELY ASSISTED PT. TO SUPINE POSITION AND SHE WAS THEN ABLE TO MOVE UP IN BED. STERI STRIP NOTED AT UMBILICUS AND LOWER ABD. RANDOM BRUISING NOTED ON ABD. PT. REQUESTING SOMETHING FOR HER DRY LIPS AND SORE THROAT. INFORMED WOULD HAVE TO CONTACT MD FOR ORDERS. IV OF NS INFUSING AT 125CC/HR. PER PUMP. BREATH SOUNDS CLEAR AND BOWEL SOUNDS AUDIBLE ALTHOUGH HYPOACTIVE. ABD. DISTENDED BUT SOFT TO TOUCH. FAMILY MEMBER WITH PT.
--- NOTE | 2016-08-20 01:30 | NUR ---
HEVER SAENZ SUPPLIED TO PT. ER CONTACTED FOR CHLORSEPTIC SPRAY ORDER. PT. STATES DESIRE TO VOID. PLACED ON BEDPAN. STATES WILL HAVE TO "RELAX" BEFORE SHE CAN USE BEDPAN.
[2016-08-20] MEDS ORDERED: GLUCOPHAGE1000 MG PO (01:43)
[2016-08-20] MEDS ORDERED: JARDIANCE10 MG PO (01:44)
[2016-08-20] MEDS ORDERED: MOBIC7.5 MG PO (01:45)
[2016-08-20] MEDS ORDERED: LEVOXYL50 MCG PO (01:45)
--- NOTE | 2016-08-20 01:45 | NUR ---
MED RECONCILIATION COMPLETED. PT. REPORTS THAT SHE HAS NOT TAKEN HOME MEDS SINCE SATURDAY DUE TO NAUSEA AND VOMITING. NG CONNECTED TO LOW INTERMITTENT SUCTION.
[2016-08-20] MEDS ORDERED: TOPROL XL50 MG PO (01:46)
[2016-08-20] MEDS ORDERED: ZESTRIL40 MG (01:47)
--- NOTE | 2016-08-20 01:59 | NUR ---
VOIDED SCANT AMT. ON BEDPAN. APPROX. 10CC. PT. C/O HEADACHE. SCD SLEEVES PLACED ON LOWER LEGS AND PUMP FUNCTIONAL. PT. STATES SHE REMEMBERS USING SCDS WHEN IN HOSPITAL EARLIER.
--- NOTE | 2016-08-20 02:00 | NUR ---
SCDs applied to BLE.
--- NOTE | 2016-08-20 02:10 | NUR ---
DR. MENDEZ CALLED AND INFORMED OF PT. C/O HEADACHE AND BPS SINCE ADMIT TO UNIT. INFORMED OF LOW OUTPUT WHEN USING BEDPAN. ORDERS RECEIVED. ADMINISTRATIVE MANAGER PRESENTLY ON UNIT AND INFORMED OF MEDS AND IV SOLUTIONS NEEDED FOR PT.
--- NOTE | 2016-08-20 02:27 | NUR ---
CHLORSEPTIC SPRAY PROVIDED ORDERED.
--- NOTE | 2016-08-20 02:45 | NUR ---
Pt repositioned in bed.
--- NOTE | 2016-08-20 03:02 | NUR ---
ADMIT ASSESSMENT IN PROGRESS. PT. SLEEPING INTERMITTENTLY THROUGHOUT ASSESSMENT.
--- NOTE | 2016-08-20 03:15 | NUR ---
NS SUCTION PRESENTLY OFF DUE TO RECENT MED ADMINISTRATION. PT. CONTINUES TO SLEEP INTERMITTENTLY.
--- NOTE | 2016-08-20 03:30 | NUR ---
PT. C/O NAUSEA. EMESIS BAG AND COOL CLOTH PROVIDED. PT. REQUESTING PAIN MED.
--- NOTE | 2016-08-20 03:50 | NUR ---
PT. C/O INCREASED NAUSEA. NG BACK TO LOW INTERMITTENT SUCTION. DILAUDID 1MG ADDED TO 7CC NORMAL SALINE AND PUSHED OVER 2-3 MINUTES. PT. SLEEPING AT INTERVALS.
--- NOTE | 2016-08-20 04:22 | NUR ---
150CC GREEN COLORED URINE NOTED POST VOID. PT. USED CHLOROSEPTIC SPRAY AND TOWEL POSITIONED AT PT. NECK PER HER INSTRUCTIONS. PT. STATES THAT HER PAIN IS A 3 OF 10 AT THIS TIME AND SHE THINKS SHE CAN SLEEP.
--- NOTE | 2016-08-20 04:28 | NUR ---
LEMON GLYCERIN SWABS PROVIDED TO PT. PLACE ON BEDSIDE TABLE. PT. SLEEPING AT PRESENT. SCDS ON AND FUNCTIONAL.
--- NOTE | 2016-08-20 05:30 | NUR ---
PT. REPORTS THAT SHE WAS AWAKENED BY PHONE. SCDS ON AND FUNCTIONAL. IV OF NS WITH 40MEQ KCL CONTINUES TO INFUSE. IV SITED IN RT AC AREA.
--- NOTE | 2016-08-20 06:34 | NUR ---
LAB HERE FOR BLOOD DRAW.
[2016-08-20 06:59] LABS: BASOPHILS 0.1 % (0.0-2.0); EOSINOPHILS 0.8 % (0-7); HEMATOCRIT 37.6 % (36.0-48.0); HEMOGLOBIN 11.7 g/dL (12-16); IMMATURE GRANULOCYTES 0.5 % (0-5); LYMPHOCYTES 15.6 % (15-50); MCH 26.2 pg (26.0-34.0); MCHC 31.1 g/dL (31.0-37.0); MCV 84.3 fL (80.0-100.0); MEAN PLATELET VOLUME 11.2 fL (7.4-10.4); MONOCYTES 9.8 % (2-11); NEUTROPHILS 73.2 % (40-80); PLATELET COUNT 274 10x3/uL (130-400); RBC 4.46 10x6/uL (4.00-5.40); RDW 14.9 % (11.5-14.5); WBC 11.3 10x3/uL (4.8-10.8)
[2016-08-20 07:19] LABS: ALBUMIN 2.5 g/dL (3.4-5.0); ALKALINE PHOSPHATASE 67 U/L (46-116); ALT (SGPT) 25 U/L (10-68); CALC OSMOLALITY 283 mosm/kg (275-300); CALCIUM 8.4 mg/dL (8.5-10.1); CARBON DIOXIDE 29.2 mmol/L (21.0-32.0); CHLORIDE - SERUM 106 mmol/L (98-107); CREATININE - SERUM 0.7 mg/dL (0.6-1.3); GLUCOSE 132 mg/dL (74-106); PROTEIN - SERUM 6.1 g/dL (6.4-8.2); SODIUM 143 mmol/L (136-145); UREA NITROGEN 4 mg/dL (7-18); eGFR NON AFRICAN AMERICAN > 90 mL/min (90-120)
--- NOTE | 2016-08-20 07:45 | NUR ---
PT WAS RECEIVED FROM LABOR AND DELIVERY. SHE WAS ADMITTED LAST PM FOR AN ILEUS. GEN- AWAKE AND ALERT. LUNGS- CLEAR. HEART- RRR. ABD- SOFT BS+. EXT. SCD'S INTACT. NG TUBE INTACT AND TO LOW INTERMITTENT SUCTION. BED IS LOW. SIDE RAILS UP X 2 AND CALL LIGHT IS IN REACH.
--- NOTE | 2016-08-20 08:30 | NUR ---
DR WHITING IS HERE TO SEE PT. SHE TOLD PT THAT SHE WANTED HER UP OUT OF THE BED MOST OF THE DAY. SHE WANTS HER WALKING AND SITTING UP IN THE CHAIR.
--- NOTE | 2016-08-20 09:35 | NUR ---
DR WHITING ORDERED PHYSICAL THERAPY CONSULT. ORDER PLACED.
--- NOTE | 2016-08-20 10:36 | NUR ---
UP IN CHAIR AFTER PT WALK. LOW INTERMIT SUCTION FOR NG. PT TOOK SPONGE BATH AND LINEN CHANGED.
--- NOTE | 2016-08-20 11:05 | NUR ---
RETURNED TO RETURNED TO BED AFTER BEING UP IN CHAIR X45 MIN ( INCLUDING BATH TIME). PT VOIDED WHILE UP.. NOT MEASURED. PT FEELS LIKE SHE EMPTIED HER BLADDER SUFFICIENTLY
--- NOTE | 2016-08-20 12:33 | NUR ---
EYES CLOSED. RESP NON-LABORED. APPEARS SLEEPING. SUCTION REMAINS AT LOW INTERMIT SETTING. IV PATENT AND INFUSING TO RT AC
--- NOTE | 2016-08-20 13:30 | NUR ---
PT IS SLEEPING. BED IS LOW, SIDE RAILS UP X 2 AND CALL LIGHT IN REACH.
--- NOTE | 2016-08-20 14:41 | NUR ---
PT IS SITTING UP IN CHAIR. PT REQUEST SOME ICE CHIPS. I TOLD HER I WOULD HAVE TO CHECK WITH DR WHITING.
--- NOTE | 2016-08-20 15:09 | NUR ---
HUNG NEW IV BAG. IV PATENT. PT GOT BACK IN THE BED. I DISCUSSED WITH HER THAT SHE NEEDED TO WALK SOME MORE AND SIT IN CHAIR.
--- NOTE | 2016-08-20 15:34 | NUR ---
PT STATES THAT SHE WILL GET UP AND WALK. WALKED WITH HER IN HALLWAY. PT STOPPED TO WEIGH. SHE WEIGHED 391 LB. PT IS BACK TO ROOM AND IS SITTING IN CHAIR. REQUEST SOMETHING FOR NAUSEA. GAVE HER PHENERGAN IM LEFT DORSOGLUTEAL.
--- NOTE | 2016-08-20 16:33 | NUR ---
PT WENT BACK TO BED. STATES SHE WAS FEELING NAUSEOUS AND DIZZY. AT BEDSIDE. BED IS LOW, SIDE RAILS UP X 2 AND CALL LIGHT IS IN REACH.
--- NOTE | 2016-08-20 16:42 | NUR ---
DR WHITING CALLED TO CHECK ON HER PT, MRS SANTANA. I GAVE HER INFO ON PT WALKING AND HER UP IN CHAIR X 2. I TOLD HER THE PT REQUESTED ICE CHIPS. SHE STATED WE COULD GIVE HER 30 CC OF ICE EVERY 2 HRS.
--- NOTE | 2016-08-20 18:10 | NUR ---
PT IS SLEEPING HEAVY. AT BEDSIDE. NG TUBE INTACT TO LOW INTERMITTENT SUCTION. IV PATENT R AC. NS WITH 40 MEQ KCL INFUSING AT 75 CC/HR. BROWNISH OUTPUT WITH 220 CC NOTED. INCISION - CLEAN AND DRY. BED IS LOW. SIDE RAILS UP X 2 AND CALL LIGHT IN REACH.
--- NOTE | 2016-08-20 19:00 | NUR ---
RECEIVED SHIFT REPORT FROM YOLI SAUNDERS RN
--- NOTE | 2016-08-20 19:10 | NUR ---
PT CONTINUOUS MINING MACHINE COMPANY MINER LIGHT, YOLI SAUNDERS RN TO ROOM, PT REQUESTS TO AMB WITH SPOUSE, NG TUBE CLAMPED OFF PER YOLI SAUNDERS RN, PT UP AMB IN OMRRIS WITH SPOUSE
--- NOTE | 2016-08-20 19:27 | NUR ---
PT BACK IN ROOM, REPORTS VOIDING BY SELF WITH NO DIFFICULTY, SITTING UP IN CHAIR, REQUESTS NOT TO BE "HOOKED" BACK UP AT THIS TIME, INFORMED PT THAT IV NEEDS TO START AGAIN, SALINE LOCK CONVERTED TO IV, NS WITH KCL INFUSING VIA PUMP AT 75 ML/HR PER MD ORDERS, PT REQUESTS PAIN MED AND ICE CHIPS, INFORMED PT THAT I NEED TO LOOK OVER HER ORDERS AND WILL BE BACK SHORTLY, PT VERBALIZES UNDERSTANDING, DENIES FURTHER NEEDS AT THIS TIME, SPOUSE LEAVES TO GO HOME
--- NOTE | 2016-08-20 19:35 | NUR ---
CALLED DR DRISCOLL, INQUIRED ABOUT PT TAKING MOTRIN WITH A SMALL SIP OF H20 SINCE THAT IS WHAT SHE HAD EARLIER, INFORMED HIM SHE ALSO HAD DEMEROL IM ORDERED, DR DRISCOLL INFORMS ME THAT THAT IS THE WORST MEDICINE TO GIVE ANYONE WITH AN ILEUS, DR DRISCOLL SAID TO CLAMP NGT FOR AN HOUR AND ADM MOTRIN WITH A SMALL SIP OF H2O
--- NOTE | 2016-08-20 19:41 | NUR ---
NGT STILL CLAMPED, ADM MOTRIN PO WITH A VERY SMALL SIP OF H20, PT TOLERATED WELL
--- NOTE | 2016-08-20 20:00 | NUR ---
ASSESSMENT PER FLOW SHEET, VS OBTAINED, IV IN RIGHT AC INTACT WITH NO REDNESS OR EDEMA INFUSING VIA PUMP NS WITH KCL AT 75 ML/HR, BIKINI INC WITH STERI STRIPS CDI WITH NO DRAINAGE NOTED, BASILIA PAD OVER INC FOR COMFORT AND MOISTURE CONTROL, PT REPORTS "ALITTLE FLATUS" TODAY, AND NO BM TODAY, REPORTS HAVING SEVERAL BM'S OVER THE WEEKEND, PT UP TO BR WITH ASSISTANCE, GAIT STEADY, VOIDED BY SELF WITH NO DIFFICULTY, PT BACK TO BED, PT POSITIONED SELF IN BED, PILLOW UNDER RIGHT ARM FOR IV, PT REQUESTS LIGHTS OFF AT THIS TIME, DENIES FURTHER NEEDS
--- NOTE | 2016-08-20 20:00 | NUR ---
LATE ENTRY: PT REQUESTED AND SERVED 30CC OF ICE CHIPS PER MD ORDERS
--- NOTE | 2016-08-20 20:40 | NUR ---
NGT BACK TO LOW INTERMITTENT SUCTION, PT DENIES NEEDS AT THIS TIME
--- NOTE | 2016-08-20 21:20 | NUR ---
PT AWAKE, TALKING ON PHONE, PT CONCERNED OF BP AND NOT TAKING BP MEDICINE, INFORMED PT THAT I AM GOING TO TAKE IT AGAIN AND IF IT WAS STILL ELEVATED I WILL NOTIFY THE DOCTOR, SEE FLOW SHEET FOR BP
--- NOTE | 2016-08-20 21:22 | NUR ---
CALLED DR DRISCOLL, REPORT OF PT'S BP AND REQUEST OF TAKING BP MEDICINE, ORDERS TO CLAMP NGT FOR 1 HOUR AND ADM LISINIPRIL PO PER HOME MEDICINE
--- NOTE | 2016-08-20 22:03 | NUR ---
PT AWAKE, NGT CLAMPED, ADM LISINIPRIL PO PER MD ORDERS, SEE EMAR, PT REQUESTED AND PROVIDED 30 CC OF ICE CHIPS, PT DENIES FURTHER NEEDS
--- NOTE | 2016-08-20 23:15 | NUR ---
PT CHIEF ADMINISTRATIVE OFFICER LIGHT, STATES "I FEEL LIKE I NEED TO HAVE A BM", PT UP TO BR, GAIT STEADY, PT TO COMMODE, HAVING BM AT THIS TIME, INFORMED PT THAT I WILL STEP OUT TO GIVE HER SOME PRIVACY AND INST TO USE BR CALL LIGHT FOR ANY ASSISTANCE, PT VERBALIZES UNDERSTANDING, STATES "YOU MIGHT WANT TO GET OUT OF HERE ANYWAY", PT CHUCKLES AT THIS TIME
--- NOTE | 2016-08-20 23:29 | NUR ---
PT HEADRIG SAWYER LIGHT, PT BACK IN BED, HAD BM, PT REPORTS "FEELING A LITTLE BETTER", NGT UNCLAMPED, PT REPOSITIONED TO LEFT SIDE WITH PILLOW BEHIND BACK FOR COMFORT AND SUPPORT, PT DENIES FURTHER NEEDS
--- NOTE | 2016-08-21 00:31 | NUR ---
PT PAPER PRODUCTS PRINTER LIGHT, STATES "THESE CORDS KEEP GETTING TANGLED UP", REPOSITIONED IV LINE AND NGT LINE FOR PT, PT STATES "TAHNK YOU, THATS BETTER", PT DENIES FURTHER NEEDS
--- NOTE | 2016-08-21 00:48 | NUR ---
PT AIRPLANE COVER MAKER LIGHT, PT C/O PAIN BEHIND THE LEFT KNEE, THIS RN AND RONNA VALDIVIA RN TO ROOM, RONNA VALDIVIA RN ASSESSED AREA, NO REDNESS, HEAT, OR EDEMA NOTED, UNABLE TO FIND THE PULSE BEHIND THE KNEE, WILL CALL DR DRISCOLL
--- NOTE | 2016-08-21 00:55 | NUR ---
CALLED DR DRISCOLL, REPORT OF PT'S COMPLAINT OF PAIN BEHIND THE KNEE, UNABLE TO FIND PULSE, NO REDNESS, NO EDEMA, NO HEAT, ORDER TO DO A DOPPLER
--- NOTE | 2016-08-21 00:57 | NUR ---
RADIOLOGY NOTIFIED OF ORDER
--- NOTE | 2016-08-21 01:00 | NUR ---
PT INFORMED THAT ULTRASOUND WILL BE IN SHORTLY TO DO A DOPPLER, PT VERBALIZES UNDERSTANDING
--- NOTE | 2016-08-21 01:50 | NUR ---
RADIOLOGY TO ROOM FOR DOPPLER OF LEFT LEG
--- NOTE | 2016-08-21 02:20 | NUR ---
RADIOLOGY OUT OF ROOM, WILL HAVE US READ AND FAX REPORT
[2016-08-21 02:40] VITALS: BP 197/97
--- NOTE | 2016-08-21 02:40 | NUR ---
PT AWAKE, VS OBTAINED TO REPORT ALONG WITH DOPPLER READING WHEN RECEIVED FROM RADIOLOGY, REQUESTED AND PROVIDED ICE PACK AND ICE CHIPS (30CC), PT REPOSITIONED TO RIGHT SIDE WITH PILLOW BEHIND BACK FOR COMFORT AND SUPPORT, PT DENIES FURTHER NEEDS
--- NOTE | 2016-08-21 03:30 | NUR ---
RECEIVED PRELIMINARY REPORT, SPOKE TO RONAK WALLER, RN, ENDOSCOPY TECH, SHE INFORMED ME THAT I DID NOT HAVE TO CALL THE DR AT THIS TIME, BUT TO CALL AROUND 6:30/7:00, OR IF L&D HAD TO CALL HIM, THEY NEEDED TO LET HIM KNOW THAT I NEEDED TO TALK TO HIM, RONAK WALLER RN, ENDOSCOPY TECH, STATES THAT PT IS NOW ON BEDREST UNTIL THE DR REVIEWS THE REPORT
--- NOTE | 2016-08-21 03:54 | NUR ---
PT STOCK TRACER LIGHT, PT STATES "MY STOMACH FEELS FULL", PLACEMENT OF NGT CHECKED PER THIS RN AND RONAK WALLER RN, NFL PLAYER, NGT IN CORRECT PLACEMENT, LOW INTERMITTENT SUCTION, ABD SOFT, PT ASKS A FEW QUESTIONS ABOUT NGT, ANSWERED PER RONAK WALLER RN, NFL PLAYER, I&O'S COLLECTED, DENIES FURTHER NEEDS
--- NOTE | 2016-08-21 04:08 | NUR ---
PT DEVOPS SOLUTIONS ARCHITECT LIGHT, PT PULLED IV OUT, SITE NOTED TO BE INFILTRATED, IV UNTAPED, PRESSURE HELD, BANDAID APPLIED, PT INFORMS ME THAT SHE IS A VERY HARD STICK, INFORMED PT THAT I WILL GET SOMEONE TO RESTART THE IV
--- NOTE | 2016-08-21 04:14 | NUR ---
ICU NOTIFIED FOR NEED OF AN IV, CHARLINE HAMPTON SAID SHE WILL SEE WHO SHE CAN SEND DOWN
--- NOTE | 2016-08-21 04:18 | NUR ---
CHARLINE HUNTLEY FROM ICU TO ROOM FOR IV START
--- NOTE | 2016-08-21 04:43 | NUR ---
CHARLINE HUNTLEY FROM ICU REPORTS SHE ATTEMPTED IV START X 3 WITH NO SUCCESS, STATES SHE WILL SEND SOMEONE ELSE DOWN HERE
--- NOTE | 2016-08-21 04:46 | NUR ---
WARM PACK PLACED TO RT AC WHERE IV INFILTRATED. PT DENIES FURTHER NEEDS AT THIS TIME.
--- NOTE | 2016-08-21 05:11 | NUR ---
ZOFRAN GIVEN PER ORDERS FOR NAUSEA. SEE EMAR. PT DENIES FURTHER NEEDS AT THIS TIME.
--- NOTE | 2016-08-21 05:26 | NUR ---
PT ENTRY LEVEL PROJECT COORDINATOR LIGHT, PT DROPPED PHONE, PHONE ON CHAIR, HANDED TO PT, PT REPOSITIONED SELF IN BED, PT REPORTS GETTING UP TO BR, PT AGAIN INFORMED THAT SHE IS BEDREST UNTIL THE DOCTOR LOOKS OVER DOPPLER REPORT, PT VERBALIZES UNDERSTANDING, NEW BAG OF NS WITH KCL HUNG VIA PUMPM SEE EMAR, PT DENIES FURTHER NEEDS
--- NOTE | 2016-08-21 05:50 | NUR ---
RONAK WALLER, RN, WIPING CLOTH CUTTER, ON UNIT, I ASKED HER ABOUT CALLING DR DRISCOLL OR IF I REALLY NEEDED TO CALL PT'S PRIMARY DOCTOR, SHE SAID THAT THE DAY SHIFT NURSE COULD CONTACT PT'S PRIMARY DOCTOR
--- NOTE | 2016-08-21 06:28 | NUR ---
PT RESTING WITH EYES CLOSED, RESP QUIET, NO DISTRESS NOTED, LEFT UNDISTURBED AT THIS TIME, NGT CANISTER MARKED, SEE FLOW SHEET FOR OUTPUT
--- NOTE | 2016-08-21 07:00 | NUR ---
SHIFT REPORT TO BHARATHI RHODES RN
[2016-08-21 07:45] VITALS: BP 201/101
--- NOTE | 2016-08-21 10:27 | NUR ---
PATIENT DECLINED TO WALK WITH PT. SHE STATES THAT SHE IS FEELING TO MISERABLE. SHE IS RESTING IN HER BED, HOB UP 45 DEGREES, LIGHTS OUT C/O NOT BEING ABLE TO GO TO SLEEP. SHE IS ASKING FOR A SLEEPING PILL. INFORMED HER THAT WE CAN GIVE HER ONE THIS EVENING. HER NGT REMAINS CLAMPED. WE DISCUSSED HOOKING IT BACK TO SUCTION IN ABOUT 30 MINUTES. SHE VOICES UNDERSTANDING THAT SHE NEEDS TO WALK AND AGREES TO DO SO BEFORE WE RECONNECT THE SUCTION. HER CALL LIGHT IS WITHIN HER REACH. SHE DENIES NEEDS. AT THIS TIME.
--- NOTE | 2016-08-21 10:59 | NUR ---
RECONNECTED THE LIS. RACHELL PLACED ON CANISTER FOR STARTING POINT. FRANNY IS RESTING QUIETLY WITH DEEP, EVEN RESPIRATIONS WHEN I ENTERED.
--- NOTE | 2016-08-21 11:09 | NUR ---
FRANNY GIVEN LOVENOX 120MG/0.8ML IN THE RUQ OF HER ABDOMEN. SHE AWOKE EASILY TO MY TOUCH AND NODS UNDERSTANDING. SHE'S REFUSED TO AMBULATE PREVIOUSLY DISCUSSED, SHE IS TIRED. WILL ALLOW TO REST AND AMBULATE THIS AFTERNOON. SHE FELL BACK TO SLEEP BEFORE I LEFT HER ROOM.
--- NOTE | 2016-08-21 11:59 | NUR ---
PATIENT GIVEN 4MG OF ZOFRAN IV FOR C/O NAUSEA. 20CC OF CLEAR/FUSIA FLUID SUCKED FROM HER STOMACH.
--- NOTE | 2016-08-21 12:15 | NUR ---
SPOKE WITH DR. WHITING. REPORTED THAT THE PATIENT HAD 20CC OF OUTPUT TO THE SUCTION CANISTER OVER AN HOUR SINCE RESTARTING THE SUCTION AT 1050.
[2016-08-21 12:47] LABS: BASOPHILS 0.1 % (0.0-2.0); EOSINOPHILS 0.9 % (0-7); HEMATOCRIT 37.4 % (36.0-48.0); HEMOGLOBIN 11.3 g/dL (12-16); IMMATURE GRANULOCYTES 0.8 % (0-5); LYMPHOCYTES 14.5 % (15-50); MCHC 30.2 g/dL (31.0-37.0); MEAN PLATELET VOLUME 10.4 fL (7.4-10.4); MONOCYTES 9.3 % (2-11); NEUTROPHILS 74.4 % (40-80); PLATELET COUNT 258 10x3/uL (130-400); RBC 4.35 10x6/uL (4.00-5.40); WBC 11.2 10x3/uL (4.8-10.8)
[2016-08-21 13:00] VITALS: BP 191/97
--- NOTE | 2016-08-21 13:10 | NUR ---
NGT REMOVED FROM THE PATINET'S LEFT NARE. THERE HAS BEEN A TOTAL OF 50CC OF BROWN/REDDISH FLUID TO THE SUCTION CANISTER SINCE IT WAS RESTARTED AT 1050.
--- NOTE | 2016-08-21 13:20 | NUR ---
WAI AMBULATED 120FT WITH PT TECH. SHE WAS RELUCTANT. REQUESTED CL. DENIED, WITH EXPLANATION THAT SHE IS NPO AND NEEDS TO LET THE BOWEL REST. SHE IS C/O NAUSEA. ENSURED HER THAT ADDING LIQUIDS TO A NAUSEATED STOMACH WAS NOT A GOOD IDEA. HER SPOUSE AND DIRECTOR OF CLINICAL EDUCATION ARE HERE TO VISIT HER. PT TECH ASSISTED HER INTO HER BEDISDE CHAIR. SHE CONFIRMS THAT THIS IS MORE COMFORTABLE THAN HER BED.
[2016-08-21 13:29] LABS: ALBUMIN 2.8 g/dL (3.4-5.0); ALKALINE PHOSPHATASE 65 U/L (46-116); ALT (SGPT) 27 U/L (10-68); BILIRUBIN - TOTAL 0.33 mg/dL (0.2-1.3); CALC OSMOLALITY 288 mosm/kg (275-300); CALCIUM 8.1 mg/dL (8.5-10.1); CARBON DIOXIDE 28.5 mmol/L (21.0-32.0); CHLORIDE - SERUM 106 mmol/L (98-107); CREATININE - SERUM 0.6 mg/dL (0.6-1.3); GLUCOSE 112 mg/dL (74-106); PROTEIN - SERUM 5.7 g/dL (6.4-8.2); SODIUM 146 mmol/L (136-145); UREA NITROGEN 5 mg/dL (7-18); eGFR NON AFRICAN AMERICAN > 90 mL/min (90-120)
--- NOTE | 2016-08-21 13:40 | NUR ---
SPOKE WITH DR CUEVA THROUGH A SURGICAL NURSE AND REPORTED THE CONSULT FOR THE NEED FOR DVT TREATMENT. HE RECOMMENDED THAT HER FAMILY PHYSICIAN BE NOTIFIED.
--- NOTE | 2016-08-21 13:44 | NUR ---
PATIENT AND HER LEAD WELDER ARE PRAISING AND WORSHIPING IN HER ROOM. DID NOT DISTURB.
--- NOTE | 2016-08-21 14:10 | NUR ---
SPOKE WITH DR. WHITING TO REPORT DR. CUEVA'S RECOMMENDATION. NEW ORDERS RECEIVED TO CONSULT ANTONI PRIMARY DR OR MED SENIOR INTEGRATION DEVELOPER.
--- NOTE | 2016-08-21 14:15 | NUR ---
CALLED TO SURGERY AND REPORTED THAT DR. CUEVA WAS NEEDED FOR CONSULT OF ILEUS AND DVT TREATMENT. HE IS IN SURGERY, NURSE WILL GIVE HIM MESSAGE.
--- NOTE | 2016-08-21 14:20 | NUR ---
HAVE CALLED ER AND COMIC BOOK WRITER. PER BRIDGET HARDWICK I CALLED [facility] NP TO REQUEST CONSIDERATION FROM DR. PRINCE TO ACCEPT THIS PATINET WHILE ADMITTED FOR B/P MANAGENMENT. AWAITING CALL BACK
[2016-08-21 14:25] VITALS: BP 183/88
--- NOTE | 2016-08-21 14:27 | NUR ---
PATIENT RESTING IN HER BED, SPOUSE AND LASER MACHINE OPERATOR RESTING AT THE BEDSIDE. SHE IS RESTING WITH HOB UP 45 DEGREES, SHE HAS HER GLASSES ON AND IS SMILING SHE TALKS WITH ME ABOUT HER DOCTOR AND HOW MUCH IMPROVED SHE FEELS. SHE REQUESTS SOMETHING TO DRINK, SOMETHING CLEAR. FRESH WATER GIVEN. ENCOURAGED HER TO SIP ON THEM.
--- NOTE | 2016-08-21 14:44 | NUR ---
FRANNY USED CALL LIGHT TO REPORT SOFT STOOL. APPROX 2 CUPS FULL OF LIGHT BROWN, SOFT/SEMISOLID STOOL.
--- NOTE | 2016-08-21 16:48 | NUR ---
DISCUSSED DISCHARGE INSTRUCTIONS WITH THE PATIENT AND HER . DISCUSSED PERICARE, PELVIC REST, MEDICATIONS AND SIGNS OF INFECTION. FOLLOW UP APPT GIVEN WELL PRESCRIPTIONS. SHE NOR HAVE ANY QUESTIONS. NURSERY NOTIFIED.
--- NOTE | 2016-08-21 16:52 | NUR ---
DR. CUEVA HERE TO SEE PATINET. NEW ORDERS RECEIVED TO KEEP PATINET NPO EXCEPT POPSCICLES. FRANNY GIVEN A POPSCICLE, MARY. SHE IS VERY APPRECIATIVE.
--- NOTE | 2016-08-21 17:02 | NUR ---
PATIENT AMBULATED WITHIN THE UNIT >110 FEET WITH HER . SHE IS INDEPENDENT AND ABLE TO MANEUVER HER IV POLE. SHE HAS ALSO HAD ANOTHER SOFT BOWEL MOVEMENT.
--- NOTE | 2016-08-21 17:35 | NUR ---
PATIENT USED CALL LIGHT TO REPORT THAT SHE'S HAD ANOTHER BM.
--- NOTE | 2016-08-21 18:21 | NUR ---
PATIENT RESTING QUIETLY WITH DEEP EVEN RESPIRATIONS. SNORING EVEN. SPOUSE IN THE BEDISDE CHAIR. NO NEEDS NOTED. IVF INFUSING PER ORDERS.
--- NOTE | 2016-08-21 19:38 | NUR ---
PM ROUNDS MADE, UPON ENTERING ROOM, PT IS GETTING UP TO BR, GAIT STEADY, REPORTS NEEDING TO HAVE A BM, PT TO COMMODE, PT INST TO USE CALL LIGHT FOR ANY ASSISTANCE, PT VERBALIZES UNDERSTANDING
[2016-08-21 19:41] VITALS: BP 199/95
--- NOTE | 2016-08-21 19:41 | NUR ---
PT CONTENT ENGINEER LIGHT, PT BACK TO BED, ASSESSMENT PER FLOW SHEET, VS OBTAINED, IV IN LEFT FA INTACT WITH NO REDNESS OR EDEMA INFUSING VIA PUMP NS WITH KCL AT 125 ML/HR, BIKINI INC WITH STERI STRIPS CDI WITH NO DRAINAGE NOTED, BASILIA PAD PLACED FOR COMFORT AND MOISTURE CONTROL, UMB INC WITH STERI STRIP CDI WITH NO DRAINAGE NOTED, PT HAD LOOSE BROWN BM, PT STATES "I DIDN'T FLUSH IT SO YOU COULD SEE IT", TOILET FLUSHED, PT REQUESTS ROOM DEODORIZER, BASILIA WIPES, ICE CHIPS AND SOMETHING FOR NAUSEA, INFORMED PT THAT I WILL OBTAIN ITEMS AND BE BACK SHORTLY
--- NOTE | 2016-08-21 20:03 | NUR ---
ADM DANI GLOVER PER MD ORDERS, SEE EMAR, ROOM DEODORIZER, BASILIA WIPES, AND ICE CHIPS PROVIDED, PT ALSO REQUEST MELATONIN TO HELP HER SLEEP, PT REPORTS THAT I CAN BRING IT IN WHEN HER BP MEDICINE IS DUE, I INFORMED PT THAT I WILL COME IN ABOUT 8:45 PM TO ADM BP, MELATONIN AND LOVENOX, PT STATES "THAT WILL BE GREAT", PT DENIES FURTHER NEEDS, MEDICAL RECORDS CAME TO ROOM TO UPDATE INFORMATION
--- NOTE | 2016-08-21 20:45 | NUR ---
PT SHOOTER'S HELPER LIGHT, PT UP TO BR, GAIT STEADY, PT TO COMMODE, PT INST TO USE CALL LIGHT FOR ANY ASSISTANCE OR WHEN BACK TO BED
--- NOTE | 2016-08-21 20:59 | NUR ---
PT CHEMICAL PROCESSING EQUIPMENT REPAIRER LIGHT, PT REPORTS VOIDING WITH NO DIFFICULTY, HAD SMALL LOOSE BM, ABD BINDER APPLIED, PT BACK TO BED, ADM 2100 MEDS, SEE EMAR, WITH SMALL SIP OF H20, PT DENIES FURTHER NEEDS
--- NOTE | 2016-08-21 21:34 | NUR ---
PT PYRIDINE RECOVERY OPERATOR LIGHT, UP IN BR AT THIS TIME, STATES "I FELT LIKE I MIGHT NEEDED TO GO AGAIN", PT BACK TO BED, POSITIONED SLIGHTLY TO THE RIGHT, PT DENIES FURTHER NEEDS
--- NOTE | 2016-08-21 22:00 | NUR ---
PT RESTING WITH EYES CLOSED, RESP QUIET, NO DISTRESS NOTED, LEFT UNDISTURBED AT THIS TIME
--- NOTE | 2016-08-21 22:23 | NUR ---
PT SHEARING MACHINE FEEDER LIGHT, C/O PAIN, ADM MOTRIN PO PER MD ORDERS, SEE EMAR, PT DENIES FURTHER NEEDS
--- NOTE | 2016-08-22 00:22 | NUR ---
PT AWAKE, C/O NAUSEA AND PAIN, ADM PHENERGAN AND DEMEROL IM TO RIGHT HIP, PT DANIELITO WELL, VS OBTAINED, PT DENIES FURTHER NEEDS
--- NOTE | 2016-08-22 01:24 | NUR ---
PT RESTING WITH EYES CLOSED, RESP QUIET, NO DISTRESS NOTED, LEFT UNDISTURBED AT THIS TIME
--- NOTE | 2016-08-22 02:47 | NUR ---
NEW BAG OF NS WITH KCL HUNG PER ANSON CHADWICK RN, REPORTS PT UP TO BR TO VOID, AND BACK TO BED
--- NOTE | 2016-08-22 04:38 | NUR ---
PT RESTING WITH EYES CLOSED, RESP QUIET, NO DISTRESS NOTED, LEFT UNDISTURBED AT THIS TIME
--- NOTE | 2016-08-22 05:00 | NUR ---
PT BEHAVIORAL CONSULTANT LIGHT, PT REPORTS BM, PT BACK IN BED, DENIES NEEDS OR PAIN AT THIS TIME
--- NOTE | 2016-08-22 06:14 | NUR ---
PT RESTING WITH EYES CLOSED, RESP QUIET, NO DISTRESS NOTED, LEFT UNDISTURBED AT THIS TIME
--- NOTE | 2016-08-22 07:00 | NUR ---
SHIFT REPORT TO YOLI SAUNDERS RN
[2016-08-22 07:15] VITALS: BP 191/91
--- NOTE | 2016-08-22 08:36 | NUR ---
Pt complaining of pain ABD, TAYLOR, and back. States I had a small BM. Dr. Garcia here to see patient. Discussed plan of care, walking, pain and nausea control. Pt denies further needs.
--- NOTE | 2016-08-22 09:15 | NUR ---
PT C/O PAIN IN ABDOMEN, BACK AND HEAD. SHE ALSO C/O NAUSEA. PT WAS GIVEN DEMEROL AND PHENERGAN ALONG WITH HER BP MEDS AND LOVENOX. HELPED PT GET ADJUSTED IN BED.
--- NOTE | 2016-08-22 09:30 | NUR ---
PT IS UP WALKING IN HALLWAY BY HERSELF. TOLERATED WELL
--- NOTE | 2016-08-22 09:39 | NUR ---
Nutrition Follow Up: Chart reviewed. Pt is POD 7 LS/MIRA/BSO. Pt with nausea this am. Per MD note ileus resolving. Multiple BMs noted. Wt loss 1# since admit. Labs noted - Na elevated; K+ low. Meds noted including NS KCl @ 125 ml/hr, Phenergan, Zofran. Pt has been NPO >48 hours. If diet unable to advance within next 24 hours rec begin nutrition support. RD following.
--- NOTE | 2016-08-22 09:45 | NUR ---
PT REQUESTED POPSICLE. TOLERATED WITHOUT PROBLEMS.
[2016-08-22 09:57] LABS: BASOPHILS 0.1 % (0.0-2.0); EOSINOPHILS 0.6 % (0-7); HEMATOCRIT 38.6 % (36.0-48.0); IMMATURE GRANULOCYTES 0.7 % (0-5); LYMPHOCYTES 5.6 % (15-50); MCH 26.5 pg (26.0-34.0); MCHC 31.1 g/dL (31.0-37.0); MCV 85.2 fL (80.0-100.0); MEAN PLATELET VOLUME 10.9 fL (7.4-10.4); MONOCYTES 9.5 % (2-11); NEUTROPHILS 83.5 % (40-80); PLATELET COUNT 277 10x3/uL (130-400); RBC 4.53 10x6/uL (4.00-5.40); RDW 14.7 % (11.5-14.5)
[2016-08-22 09:58] LABS: WBC 18.1 10x3/uL (4.8-10.8)
--- NOTE | 2016-08-22 10:08 | NUR ---
PT WAS RECEIVED THIS AM LYING IN BED RESTING. VS TAKEN BP 191/91. GEN- AWAKE AND ALERT. LUNGS CLEAR . HEART- RRR. ABD- SOFT, BS + INCISION WITH STERI STRIPS. IV PATENT LEFT WRIST. NS WITH KCL 40 MEQ INFUSING AT 125 CC/HR. BED IS LOW, SIDE RAILS UP X 2 AND CALL LIGHT IN REACH. PT HAS HAD SEVERAL BM'S.
[2016-08-22 10:09] LABS: ALBUMIN 2.8 g/dL (3.4-5.0); ALKALINE PHOSPHATASE 68 U/L (46-116); ALT (SGPT) 25 U/L (10-68); BILIRUBIN - TOTAL 0.49 mg/dL (0.2-1.3); CALC OSMOLALITY 278 mosm/kg (275-300); CALCIUM 7.8 mg/dL (8.5-10.1); CARBON DIOXIDE 27.4 mmol/L (21.0-32.0); CHLORIDE - SERUM 104 mmol/L (98-107); CREATININE - SERUM 0.6 mg/dL (0.6-1.3); GLUCOSE 114 mg/dL (74-106); PROTEIN - SERUM 6.4 g/dL (6.4-8.2); SODIUM 141 mmol/L (136-145); UREA NITROGEN 4 mg/dL (7-18); eGFR NON AFRICAN AMERICAN > 90 mL/min (90-120)
[2016-08-22 10:17] LABS: POTASSIUM - SERUM 3.5 mmol/L (3.5-5.1)
--- NOTE | 2016-08-22 10:20 | NUR ---
PT IS SLEEPING. AT BEDSIDE. BED IS LOW, SIDE RAILS UP X 2 AND CALL LIGHT IN REACH.
--- NOTE | 2016-08-22 11:00 | NUR ---
LAB REVIEWED. WBC 18.1 POTASSIUM 3.[address] WHITING. SHE ORDERED INCENTIVE SPIROMETRY AND UPDRAFTS FOR PT.
--- NOTE | 2016-08-22 12:10 | NUR ---
PT IS STILL RESTING IN BED. I TOLD HEWR AFTER LUNCH WE NEED TO GET A SHOWER, WALK AND SIT UP IN CHAIR. PT AGREED TO DO THIS. HER IS AT BEDSIDE.
--- NOTE | 2016-08-22 13:00 | NUR ---
PT IS UP TO BATHROOM. PT STATES THAT SHE HAS HEMMORHOIDS AND WOULD LIKE SOMETHING FOR THEM. I CALLED DR WHITING. ORDERED SOME ANUSOL HC.
--- NOTE | 2016-08-22 14:01 | NUR ---
PT UP TO CHAIR. SHE IS NOW WALKING IN HALLWAYS WITH HER . PT TOLERATED WELL.
--- NOTE | 2016-08-22 14:50 | NUR ---
PT IS UP TO SHOWER. SHOWER CHAIR IN SHOWER. IN ROOM TO ASSIST WITH SHOWER.
--- NOTE | 2016-08-22 17:12 | NUR ---
PT IS WANTING TO KNOW WHEN SHE CAN EAT SOMETHING. SHE HAS NOT HAD ANYTHING TO EAT SINCE SATURDAY. SHE HAS HAD ONE POPSICLE AND ICE CHIPS TODAY. SHE HAS HAD SEVERAL BM'S TODAY. SHE STATES THAT HER BOTTOM IS SORE FROM USING THE TOILET PAPER. GOT HER SOME BABY WIPES. ALSO GAVE HER ANUSOL HC TO USE ON HEMMORHOIDS.
--- NOTE | 2016-08-22 17:20 | NUR ---
I CALLED DR CUEVA ABOUT PT'S DIET. SHE IS WANTING TO EAT. HE SAID SHE COULD HAVE REGULAR ADA FULL LIQUIDS AND ADVANCE TOLERATED.
--- NOTE | 2016-08-22 17:47 | NUR ---
PT IS UP TO THE BATHROOM AGAIN. SHE WAS CONCERNED ABOUT HER IV. SALINE FLUSHED IV AND IT APPEARS TO STILL BE FUNCTIONAL. IV STARTED AGAIN.
--- NOTE | 2016-08-22 17:53 | NUR ---
PT IS NOW SITTING UP IN BED. CALL LIGHT IS IN REACH.
[2016-08-22 19:20] VITALS: BP 167/105
--- NOTE | 2016-08-22 20:34 | NUR ---
CALL LIGHT ANSWERED. ROOM TEMPERATURE ADJUSTED PER PT's REQUEST. HS MEDS GIVEN. SEE E-MAR. PAIN LEVEL "8"/10 FROM ABD. DEMEROL 25mg/PHENERGAN 25mg IM GIVEN FOR PAIN MANAGEMENT.
[2016-08-23 00:10] VITALS: BP 186/81
--- NOTE | 2016-08-23 00:21 | NUR ---
V/S TAKEN. BP 186/81 R ARM. IV PUMP CLEARED.
--- NOTE | 2016-08-23 00:46 | NUR ---
IV SITE LEAKING. RESITED ON R FA X1 WITH 22gx1 INTROCAN SAFETY IV CATH WITH GOOD BLOOD RETURN AND FLUSHED WELL. IVFLUIDS RESUMED.
--- NOTE | 2016-08-23 03:07 | NUR ---
PAIN LEVEL "9"/10 FROM ABD/BACK. DEMEROL 25mg/PHENERGAN 25mg IM GIVEN FOR PAIN MANAGEMENT. MELATONIN 3mg PO ALSO GIVEN. V/S TAKEN. BP 178/92.
[2016-08-23 03:22] VITALS: BP 178/92
--- NOTE | 2016-08-23 03:57 | NUR ---
PT RINGS RAUDEL. RN TO BEDSIDE. STATES HER DAUGHTER JUST AND IS REQUESTING A SEDATIVE. INFORMED WILL REPORT TO Stefanie ALLISON RN FOR FURTHER INTERVENTIONS. PT VERBALIZED UNDERSTANDING.
--- NOTE | 2016-08-23 04:48 | NUR ---
NEW IV BAG HUNG. SPOUSE IN THE ROOM.
--- NOTE | 2016-08-23 06:21 | NUR ---
C/O BACK PAIN. MOTRIN 600mg 1tab PO GIVEN. PT SITTING AT SIDE OF BED. SLEPT FAIRLY DURING THE NIGHT. PT IN MOURNING. CONTINUING PLAN OF CARE.
[2016-08-23 07:30] VITALS: BP 196/111
[2016-08-23 08:37] LABS: BASOPHILS 0.1 % (0.0-2.0); EOSINOPHILS 0.6 % (0-7); HEMATOCRIT 36.9 % (36.0-48.0); HEMOGLOBIN 11.6 g/dL (12-16); IMMATURE GRANULOCYTES 0.4 % (0-5); LYMPHOCYTES 7.7 % (15-50); MCH 26.6 pg (26.0-34.0); MCHC 31.4 g/dL (31.0-37.0); MCV 84.6 fL (80.0-100.0); MEAN PLATELET VOLUME 10.6 fL (7.4-10.4); MONOCYTES 7.5 % (2-11); NEUTROPHILS 83.7 % (40-80); PLATELET COUNT 251 10x3/uL (130-400); RBC 4.36 10x6/uL (4.00-5.40); RDW 14.7 % (11.5-14.5); WBC 18.1 10x3/uL (4.8-10.8)
--- NOTE | 2016-08-23 08:54 | NUR ---
Visited with patient states feeling a litte better. Talking on phone, family at bedside.
[2016-08-23 09:02] LABS: ALBUMIN 2.5 g/dL (3.4-5.0); ALKALINE PHOSPHATASE 70 U/L (46-116); ALT (SGPT) 24 U/L (10-68); CALC OSMOLALITY 277 mosm/kg (275-300); CALCIUM 8.6 mg/dL (8.5-10.1); CARBON DIOXIDE 24.5 mmol/L (21.0-32.0); CHLORIDE - SERUM 103 mmol/L (98-107); CREATININE - SERUM 0.6 mg/dL (0.6-1.3); GLUCOSE 155 mg/dL (74-106); POTASSIUM - SERUM 3.2 mmol/L (3.5-5.1); PROTEIN - SERUM 5.8 g/dL (6.4-8.2); SODIUM 139 mmol/L (136-145); UREA NITROGEN 5 mg/dL (7-18); eGFR NON AFRICAN AMERICAN > 90 mL/min (90-120)
--- NOTE | 2016-08-23 10:32 | NUR ---
PT TOOK SHOWER. INCSION WASHED WITH SOAP AND WATER AND THEN TOWEL DRYED. PT BACK TO BED. INCISION WAS PATTED DRY AGAIN AND PLACED 4X4 STERIL GAUZE ACROSS INCISION AND TAPED TO WICK AWAY MOISTURE FROM INCISION. A COUPLE OF SMALL PLACES BLEEDING AT INCISION. PT WAS GIVEN HER DEMERAOL AND PHENERGAN REQUESTED BY PT FOR PAIN IN HER ABDOMEN AND BACK.
--- NOTE | 2016-08-23 11:25 | NUR ---
PT IS SITTING UP IN CHAIR. OFFERS NO COMPLAINTS.
--- NOTE | 2016-08-23 12:23 | NUR ---
PT IS LYING IN BED. SHE STATES PAIN IS STILL AN 8 IN ABDOMEN AND BACK. AT BEDSIDE.
--- NOTE | 2016-08-23 15:16 | NUR ---
PT IS LYING IN BED TALKING ON PHONE. STATES THAT SHE IS NOT HAVING ANY PROBLEMS AT THIS TIME. NEW IV BAG HUNG. BED IS LOW. SIDE RAILS UP X 2 AND CALL LIGHT IN REACH.
--- NOTE | 2016-08-23 15:18 | NUR ---
PT C/O 01/17 [PAIN IN ABDOMEN AND BACK. DEMEROL AND PHENERGAN GIVEN.
--- NOTE | 2016-08-23 15:22 | NUR ---
CONSULT CALLED TO DR BUITRAGO THIS AM FOR MEDICAL MANAGEMENT WHILE IN THE HOSPITAL. TOLD HIM HER BP HAS BEEN ELEVATED. TOLD HIM HER CURRENT MEDS FOR BP AND HE ORDERED TO INCREASE HER METOPROLOL FROM [address] BUITRAGO STATES THAT HE WILL BE HERE TO SEE HER IN A LITTLE WHILE.
--- NOTE | 2016-08-23 15:47 | NUR ---
PT IS UP WALKING IN HALLWAY. TOLERATED WELL.
--- NOTE | 2016-08-23 18:30 | NUR ---
PT IS LYING IN BED. SHE REQUEST PAIN MED. GAVE HER DEMEROL AND PHENERGAN IM. BED IS LOW, SIDE RAILS UP X 2 AND CALL LIGHT IN REACH. IV PATENT R FOREARM WITH NS WITH KCL INFUSING.
--- NOTE | 2016-08-23 19:18 | NUR ---
DR BUITRAGO TO ROOM
[2016-08-23 19:50] VITALS: BP 202/99
--- NOTE | 2016-08-23 19:50 | NUR ---
ASSESSMENT PER FLOW SHEET, VS OBTAINED, IV IN RIGHT FA INTACT WITH NO REDNESS OR EDEMA INFUSING VIA PUMP NS WITH KCL AT 125 ML/HR, BIKINI INC WITH STERI STRIPS CDI WITH NO DRAINAGE NOTED, UMB INC INTACT WITH NO DRAINAGE NOTED, PT REPORTS FLATUS, BM SEVERAL TIMES TODAY AND VOIDING WITH NO DIFFICULTY, PT RATES PAIN 01/17, PT TALKE A LITTLE ABOUT THE OF HER DAUGHTER TODAY, PT STATES "I CAN'T LET MYSELF CRY AT THIS TIME, BECAUSE I WILL PROBABLY NOT STOP CRYING", PT REPORTS THAT HER SHOULD BE HER SHORTLY, PT REQUESTED AND SERVED FRESH H20, HEATED UP SOUP FOR PT, PT DENIES FURTHER NEEDS, OLD DINNER TRAYS AND TRASH REMOVED
--- NOTE | 2016-08-23 20:28 | NUR ---
PHARMACY NOTIFIED FOR [facility]
--- NOTE | 2016-08-23 20:34 | NUR ---
ADM LOVENOX ON LEFT SIDE, PT DANIELITO WELL, PT INFORMED OF MED ORDER FROM DR BUITRAGO AND THAT SOON I GET IT FROM THE PHARMACY, I WILL BE IN TO ADM, PT VERBALIZES UNDERSTANDING, PT INST ON AND DEMONSTRATED INCENTIVE SPIROMETER, PT DENIES FURTHER NEEDS AT THIS TIME, SPOUSE AT BEDSIDE
--- NOTE | 2016-08-23 21:30 | NUR ---
PT TALKING ON PHONE, INFORMED PT THAT I WAS STILL WAITING FOR PHARMACY TO BRING HER MEDS, PT VERBALIZES UNDERSTANDING, ALSO INFORMED PT WHEN NEXT PAIN MED WAS DUE, PT VERBALIZES UNDERSTANDING, DENIES NEEDS AT THIS TIME
--- NOTE | 2016-08-23 21:39 | NUR ---
NEW BAG OF NS WITH KCL HUNG PER MD ORDERS, SEE EMAR
--- NOTE | 2016-08-23 21:42 | NUR ---
PHARMACY NOTIFIED AGAIN FOR [facility]
--- NOTE | 2016-08-23 21:48 | NUR ---
ADM 2100 MEDS PO PER MD ORDERS, INFORMED PT THAT I WILL BE BACK IN ABOUT 30 MINUTES TO ADM THE DEMEROL AND PHENERGAN, PT VERBALIZES UNDERSTANDING, DENIES FURTHER NEEDS AT THIS TIME
--- NOTE | 2016-08-23 22:13 | NUR ---
ADM PHENERGAN AND DEMEROL IM PER MD ORDERS, SEE EMAR, PT DANIELITO WELL, PT DENIES FURTHER NEEDS
--- NOTE | 2016-08-23 22:45 | NUR ---
PT AWAKE, PT UP TO BR, GAIT STEADY, VOIDED, PT BACK TO BED, REQUESTED AND SERVED CHICKEN NOODLE SOUP AND FRESH H20, PT RATES BACK AND ABD PAIN 11/17, STATES "IT'S GETTING BETTER", PT DENIES FURTHER NEEDS
[2016-08-24 00:25] VITALS: BP 163/86
--- NOTE | 2016-08-24 00:25 | NUR ---
PT RESTING WITH EYES CLOSED, AROUSES TO SOFT VERBAL STIMULATION, VS OBTAINED, UP TO BR, GAIT STEADY, VOIDED BY SELF WITH NO DIFFICULTY, PT BACK TO BED, C/O BACK PAIN, POSITIONED PT TO RIGHT SIDE WITH PILLOW BEHIND BACK, UNDER ABD, AND BETWEEN KNEES FOR COMFORT AND SUPPORT, PT VERY TEARY, INST PT TO USE CALL FOR ANY NEEDS OR IF SHE JUST NEEDED TO TALK, PT VERBALIZES UNDERSTANDING
--- NOTE | 2016-08-24 01:28 | NUR ---
PT RESTING WITH EYES CLOSED, RESP QUIET, NO DISTRESS NOTED, LEFT UNDISTURBED AT THIS TIME
--- NOTE | 2016-08-24 02:30 | NUR ---
PT RESTING WITH EYES CLOSED, RESP QUIET, NO DISTRESS NOTED, LEFT UNDISTURBED AT THIS TIME
--- NOTE | 2016-08-24 04:17 | NUR ---
PT RESTING WITH EYES CLOSED, RESP QUIET, NO DISTRESS NOTED, LEFT UNDISTURBED AT THIS TIME
--- NOTE | 2016-08-24 05:20 | NUR ---
NEW BAG OF NS WITH KCL HUNG PER MD ORDERS, SEE EMAR, PT DENIES NEEDS OR PAIN AT THIS TIME
--- NOTE | 2016-08-24 07:00 | NUR ---
SHIFT REPORT TO BHARATHI RHODES RN
--- NOTE | 2016-08-24 07:45 | NUR ---
PATIENT RESTING IN HER BED, HOB UP 45 DEGREES. SHE IS TALKING ON THE PHONE. DENIES NEEDS. CALL LIGHT IS WITHIN HER REACH. MONITORING.
[2016-08-24 08:00] VITALS: BP 154/83
--- NOTE | 2016-08-24 09:05 | NUR ---
PATIENT GIVEN HER MORNING MEDICATIONS. DISCUSSED THE IMPORTANCE OF AMBULATING. EXPLAINED THAT HER BOWELS ARE STILL QUIET, HYPOACTIVE. SHE STATES THAT SHE HAS BEEN HAVING BOWEL MOVEMENTS DAILY AND IS EATING ABOUT 2/3 OF HER ALMAZ WITHOUT NAUSEA. HER BP IS 154/83, PULSE 88. SHE STATESTHAT SHE WILL BE RECEIVEING HER GRANDDAUGHTER TO CARE FOR SINCE HER DAUGHTER'S THIS WEEK. SHE HAS CONCERNS FOR HER B/P AND WANTS TO ENSURE THAT IT IS UNDER CONTROL PRIOR TO GOING HOME. AGAIN ENCOURAGED HER TO WALK AND INCREASE HER ORAL INTAKE OF WATER. SHE VOICES UNDERSTANDING AND PLANS TO WALK EVERY 2 HOURS TO THE NURSERY WINDOWS TODAY, STARTING AFTER A SHORT NAP.
--- NOTE | 2016-08-24 09:30 | NUR ---
PATIENT UP AMBULATING IN THE HALLWAY. SHE WENT TO THE NURSERY WINDOWS. IS PIUSHING HER IV POLE, USING IT FOR SUPPORT. DENIED DIZZINESS, GAIT IS STEADY.
--- NOTE | 2016-08-24 10:15 | NUR ---
PATIENT PROVIDED WITH LINENS FOR A SHOWER. LINENS CHANGED. IV SL AND COVERED TO PROTECT FROM THE WATER. SHE DENIED NEEDING ASSISTANCE BEYOND THIS POINT.
--- NOTE | 2016-08-24 11:19 | NUR ---
PATIENT RESTING IN HER BED. DENIED NEEDS AT THIS TIME.
[2016-08-24 12:30] VITALS: BP 145/77
--- NOTE | 2016-08-24 12:45 | NUR ---
AND GRANDDAUGHTER AT THE BEDISDE. SHE DENIES NEEDS AT THIS TIME.
--- NOTE | 2016-08-24 13:23 | CN ---
PATIENT NAME:JOSEPH KOTHARI MEDICAL RECORD: [id number] : 58 LOCATION:[facility] D.[id number] ADMIT DATE: 08/19/16 ACCOUNT: [id number] CONSULTING PHYSICIAN: AREN BUITRAGO MD REFERRING PHYSICIAN: VENITA WHITING MD DATE OF CONSULTATION: 08/23/2016 REASON FOR CONSULTATION: Medical management for hypertension. HISTORY OF PRESENT ILLNESS: This is a 56-year-old -[place] female who underwent total abdominal hysterectomy and SBO [address] Whiting. She was admitted here on August 20 with abdominal pain and found to have an ileus. She has a past medical history of diabetes, hypertension, hypothyroidism. Her blood pressure has been elevated while she has been here and is the reason for consultation. This sounds like her bowel problems are resolving. She passed gas and had BMs today, but her blood pressure remains elevated. PAST MEDICAL HISTORY: Again, type 2 diabetes, hypothyroidism, hypertension, history of left Juarez's palsy. PAST SURGICAL HISTORY: Tonsillectomy, breast reduction and total abdominal hysterectomy with BSO, just 9 days ago. ALLERGIES: OXYCODONE, PENICILLIN AND BENADRYL "MAKES ME JUMPY " HOME MEDICATIONS: Include metformin 1000 mg twice a day, Jardiance 10 mg once a day, levothyroxine 50 mcg once a day, Meloxicam 15 mg once a day, Toprol-XL 50 once a day, lisinopril 40 twice a day, Victoza 1.2 mg subcutaneously once a day. SOCIAL HISTORY: She is . She has 1 daughter that the patient just found out early this morning that she at [facility] after being there for over a month. HABITS: Former smoker. No alcohol or drugs. FAMILY HISTORY: No diabetes. Father had heart trouble. Mother is still living. PHYSICAL EXAMINATION: VITAL SIGNS: Today, temperature 98.4, this morning her blood pressure was 196/111 on the right arm with pulse of 96. HEENT: Grossly unremarkable. NECK: Supple. No JVD or bruit. HEART: Regular rate and rhythm without murmur. LUNGS: Clear. ABDOMEN: With dressing in place. Belly is soft. Bowel sounds are active. EXTREMITIES: Trace if any edema. LABORATORY DATA: Today, white count 18,100, hemoglobin 11.6, hematocrit 36.9, platelets are normal. Sodium 139, potassium 3.2, chloride 103, CO2 of 24.5, BUN 5, creatinine is 0.6, her glucose was 155. Liver enzymes were all normal. ASSESSMENT: 1. Hypertension. 2. Hypothyroidism. CONSULT REPORT [id number] JOSEPH KOTHARI 3. Ileus 9 days status post total abdominal hysterectomy and bilateral salpingo-oophorectomy. 4. Incomplete deep vein thrombosis in the left popliteal veins and a small left Sarmiento's cyst. PLAN: We will adjust blood pressure medications. She is now started to eat clears, so we will start checking her blood sugar. We will restart her levothyroxine. Other tests and procedures as warranted. Thank you for the consult Dr. Whiting, we will follow her as she stays in the hospital. TRANSINT:[id number] Voice Confirmation ID: [id number] DOCUMENT ID: [id number] AREN BUITRAGO MD at 1323 CC: [id number] DICTATION DATE: 08/23/161933 DIRECTOR CARD: 08/24/16 0105 ADM IN [facility] [address] [place] [address]
--- NOTE | 2016-08-24 13:48 | NUR ---
PATIENT SITTING UP IN HER BED, SPOUSE AND YOUNG GIRL AT THE BEDSIDE. SHE UNDERSTANDS THAT SHE WILL BE DISCHARGED HOME TODAY WITH PRESCRIPTIONS. DISCUSSED MEDICATIONS AND AVAILABILITY OF SAMPLES AT DR. BUITRAGO'S OFFICE. STATES THAT HE WILL GO PICK THEM UP PRIOR TO HER DISCHARGING HOME THIS EVENING.
[2016-08-24] MEDS ORDERED: NORVASC5 MG (14:46)
[2016-08-24] MEDS ORDERED: ELIQUIS5 MG PO (14:46)
[2016-08-24] MEDS ORDERED: TOPROL XL100 MG PO (14:47)
[2016-08-24] MEDS ORDERED: MELATONIN 3 MG1 TAB PO (14:48)
[2016-08-24] MEDS ORDERED: NORVASC5 MG PO (14:57)
--- NOTE | 2016-08-24 15:57 | NUR ---
DISCUSSED DISCHARGE INSTRUCTION. INCLUDED INCISION CARE, PELVIC REST, MEDICATIONS FOR B/P AND FOR BLOOD THINNER. INSTRUCTIONS FOR MEDICATIONS WRITTEN OUT AND DISCUSSED IN DETAIL. PATIENT UNDERSTANDS TO STOP AT DR. BUITRAGO'S OFFICE TO GET SAMPLES OF ELIQUIS. ALSO UNDERSTANDS THAT NEW BP MEDICATIONS HAVE BEEN CALLED IN TO [facility] IN [place]. HANDOUTS FOR ILEUS AND BLOOD CLOT GIVEN WELL FOR WOUND INFECTION AND HYPOTENSION. PATEINT STATES THAT SHE HAS A BP MACHINE AT HOME AND KNOWS HOW TO USE IT. INSTRUCTED HER TO BE ALERT TO SIGNS OF HYPOTENSION, SIGNS DISCUSSED.
--- NOTE | 2016-09-03 07:28 | DS ---
PATIENT:JOSEPH KOTHARI :58 MEDICAL RECORD: [id number] DISCHARGE SUMMARY ADMISSION DATE: 08/19/16 DISCHARGE DATE: 08/24/16 HOSPITAL COURSE: The patient is a 56-year-old black female who underwent a total abdominal hysterectomy, bilateral salpingo-oophorectomy on August 19. The patient did well postoperatively and was discharged home on August 24. She did developed a DVT in the popliteal vein and was treated with Lovenox while in hospital. DISCHARGE MEDICATIONS: Included Eliquis and her current blood pressure medications per Dr. White. ADDENDUM: The patient was readmitted with postoperative ileus requiring NG suction for 2 days and she was subsequently discharged from that admission in good condition to return in the office for followup in 2 weeks. TRANSINT:[id number] Voice Confirmation ID: [id number] DOCUMENT ID: [id number] VENITA WHITING MD at 0728 CC: [id number] DICTATION DATE: 09/02/16 111 BUILDING CUSTODIAN: 09/02/162026 DIS IN 08/24/16 [facility] [address] [place] [address]
== END 2016-08-24 16:14 | disposition home or self-care (01) | DRG 300 ==
LOC: D.ER 16:07 → D.LD 23:46 → D.WS 23:46 → D.LD 23:59 → D.WS 08-20 09:14
PROVIDERS: Specialist; ADMIT Obstetrics & Gynecology
DX: I82.432 Acute embolism and thrombosis of left popliteal vein (principal); K56.7 Ileus, unspecified; I10 Essential (primary) hypertension; E11.9 Type 2 diabetes mellitus without complications; E03.9 Hypothyroidism, unspecified; M71.22 Synovial cyst of popliteal space [Baker], left knee

== ENCOUNTER → 2017-04-11 13:43 | Outpatient (CLI) | payer BC ==
[2016-08-20 15:11] VITALS: BMI 46.5
[~2017-04-11 13:43] MED LIST changes: +ELIQUIS5 MG PO; +LEVOXYL50 MCG PO; +MELATONIN 3 MG1 TAB PO; +NORVASC5 MG; +NORVASC5 MG PO; +TOPROL XL100 MG PO; +ZESTRIL40 MG
== END | disposition home or self-care (01) ==
LOC: D.MAMMO 03-26 14:15
DX: Z12.31 Encounter for screening mammogram for malignant neoplasm of breast (principal)

== ENCOUNTER → 2017-07-09 18:27 | Outpatient (CLI) | payer BC ==
[2016-08-20 15:11] VITALS: BMI 46.5
== END | disposition home or self-care (01) ==
LOC: D.MAMMO 10:30
DX: R92.8 Other abnormal and inconclusive findings on diagnostic imaging of breast (principal)